=== PATIENT | male | born 1950 | race Two or more races ===

== ENCOUNTER 2017-06-10 00:45 | Emergency (ER) | payer MEDICARE, OTHER ==
[~2017-06-10] VITALS: Ht 177.8 cm; Wt 66.7 kg
[2017-06-10] MEDS ORDERED: LIDOCAINE 2% JEL UROJET 10 ML MM ONE ×2 (01:13→01:30)
[2017-06-10] MEDS ORDERED: CEFTRIAXONE 1GM BAG (ER ONLY) 50 ML IV ONE ×2 (01:30→01:55)
[2017-06-10] MEDS ORDERED: IV NS 0.9% 1,000 ML BAG IV ONE (01:30)
--- NOTE | 2017-06-10 01:41 | NUR ---
PT PRESENTED TO THE ER WITH A C/O POSS UTI. PT HAS CASTILLO CATH MOLDER MEAT WITH ORANGE OUTPUT. PT JUST FINISHED TX FOR UTI. PT STATED THAT HE HAS BPH AND IS TRYING TO GET A UROLOGIST. PT IS AA&O X4. PT IS ON THE MONITOR AND CONTINOUS PULSE OX.
[2017-06-10 01:56] LABS: BASOPHILS % (AUTO) 0.2 % (0.0-2.0); EOSINOPHILS # (AUTO) 0.1 /CMM (0.0-0.7); EOSINOPHILS % (AUTO) 1.3 % (0.0-6.0); HEMATOCRIT 36 % (39-51); HEMOGLOBIN 11.9 g/dL (13.5-17.5); LYMPHOCYTES # (AUTO) 1.3 /CMM (0.8-4.8); LYMPHOCYTES % (AUTO) 20.2 % (20.0-44.0); MEAN CORPUSCULAR HEMOGLOBIN 29 PG (26.0-33.0); MEAN CORPUSCULAR HGB CONC 33 g/dl (31.0-36.0); MEAN CORPUSCULAR VOLUME 87 fL (80-96); MONOCYTES # (AUTO) 0.5 /CMM (0.1-1.30); MONOCYTES % (AUTO) 7.3 % (2.0-12.0); NEUTROPHILS # (AUTO) 4.6 /CMM (1.8-8.9); PLATELET COUNT (AUTO) 268 /CMM (150-450); RDW COEFFICIENT OF VARIATION 15.2 (11.5-15.0); RED BLOOD CELL COUNT(AUTO) 4.15 MIL/uL (4.5-6.0); WHITE BLOOD COUNT (AUTO) 6.5 K/uL (4.3-11.0)
[2017-06-10 02:07] LABS: CALCIUM, SERUM 8.7 mg/dL (8.5-10.1); POTASSIUM 4.1 mmol/L (3.5-5.1)
[2017-06-10 02:13] LABS: ALBUMIN 3.2 g/dL (3.4-5.0); BILIRUBIN,DIRECT 0.1 mg/dL (0.0-0.2); BILIRUBIN,TOTAL 0.3 mg/dL (0.2-1.0); TOTAL PROTEIN, SERUM 6.7 g/dL (6.4-8.2)
[2017-06-10] MEDS ORDERED: CT SWABBABLE VALVE TRANS SET 1 EA INFUS.SET MC ONE (02:18)
[2017-06-10] MEDS ORDERED: IOHEXOL-300 100 ML VIAL IV ONE (02:18)
[2017-06-10] MEDS ORDERED: IV NS 0.9% 250 ML IV ONE (02:18)
--- NOTE | 2017-06-10 02:23 | NUR ---
PT LEFT FOR CT VIA GURNEY.
--- NOTE | 2017-06-10 02:55 | NUR ---
URINE SAMPLE OBTAINED AND SENT TO LAB.
[2017-06-10 03:28] LABS: APPEARANCE,URINE SL CLOUDY (CLEAR); BILIRUBIN,URINE 2+ (NEGATIVE); BLOOD, URINE 3+ Ery/uL (NEGATIVE); COLOR,URINE ORANGE (YELLOW); KETONES,URINE TRACE (NEGATIVE); LEUKOCYTE ESTERASE ,URINE 3+ (NEGATIVE); NITRITE, URINE POSITIVE (NEGATIVE); PROTEIN,URINE 3+ mg/dl (NEGATIVE); UGLUCOSE 1+ mg/dL (NEGATIVE); UROBILINOGEN,URINE >=8.0 EU/dL (0.2)
[2017-06-10 03:55] LABS: RBC,URINE 21-50 /HPF (0-2); WBC,URINE 21-50 /HPF (0-3)
[2017-06-10 03:56] LABS: BACTERIA,URINE Few /HPF (None Seen); SQUAMOUS EPITHELIAL CELL,UR Few /HPF (None Seen)
--- NOTE | 2017-06-10 04:30 | NUR ---
IV removed. Catheter intact and site benign. Pressure and 4x4 applied to site. No bleeding noted.Patient discharged to home in stable condition. Written and verbal after care instructions given. Patient verbalizes understanding of instruction AND RX. PT AMBULATED OUT TO THE LOBBY TO WAIT FOR P/U. VSS.
--- NOTE | 2017-06-10 04:32 | NUR ---
PT WAS D/C'D WITH CASTILLO. PT WANTED TO KEEP THE LARGE BAG AND REQUESTED A LEG BAG TO TAKE HOME. PT REC'D ALL REQUESTED.
[2017-06-10 04:33] VITALS: BP 129/82
== END 2017-06-10 04:34 | disposition home or self-care (01) ==
LOC: ER 00:47
DX: N39.0 Urinary tract infection, site not specified (principal); N40.0 Benign prostatic hyperplasia without lower urinary tract symptoms; B19.20 Unspecified viral hepatitis C without hepatic coma; Z88.2 Allergy status to sulfonamides; Z88.1 Allergy status to other antibiotic agents
CPT/HCPCS: 36415; 51702; 74160; 80048; 80076; 81001; 83690; 85025; 87077; 87086 ×2; 87186; 96365; 99285; A4606; J0696; J3490; J7030; J7050; Q9967; 81000-TC; Z7610

== ENCOUNTER 2017-06-16 17:59 | Emergency (ER) | payer MEDICARE, OTHER ==
[~2017-06-16] VITALS: Ht 177.8 cm; Wt 68.0 kg
[2017-06-16] MEDS ORDERED: LIDOCAINE 2% JEL UROJET 10 ML MM ONE ×3 (18:21→20:14)
--- NOTE | 2017-06-16 18:30 | NUR ---
A/OX4, PT CAME TO ER TO GET A CASTILLO CATH REPLACEMENT. PT STS HIS CASTILLO FELL OUT 1.5 HR AGO. NAD VSS RR EVEN AND UNLABORED. SKIN IS WARM AND NON DIAPHROETIC. SEEN AND EVALUATED BY Reyna HUTCHINSON
--- NOTE | 2017-06-16 18:40 | NUR ---
FOELY CATH insertion unsuccesfull. Dr. Dodge notified with order to administer Valium 5mg IM. [facility] out of stock of valium, pharmacy called and notified.
--- NOTE | 2017-06-16 19:15 | NUR ---
report given to robbi gray for cont of care.
[2017-06-16] MEDS: DIAZEPAM 5 MG/ML 2 ML DISP.SYRIN IM ONE (19:26)
[2017-06-16] MEDS ORDERED: LORAZEPAM INJ 2 MG/ML VIAL ONE (19:30)
[2017-06-16] MEDS: LORAZEPAM INJ 2 MG/ML VIAL IM ONE (19:36)
--- NOTE | 2017-06-16 20:40 | NUR ---
coude montalvo f18 inserted successfully, nad noted. patient olive procedure well. drained about 800cc of urine.
--- NOTE | 2017-06-16 20:56 | NUR ---
Patient discharged to home in stable condition. Written and verbal after care instructions given. Patient verbalizes understanding of instruction. Patient is ambulatory with a steady gait. Nad on dc. vss.
[2017-06-16 20:58] VITALS: BP 120/87
== END 2017-06-16 20:58 | disposition home or self-care (01) ==
LOC: ER 18:02
DX: T83.098A Other mechanical complication of other urinary catheter, initial encounter (principal); N39.0 Urinary tract infection, site not specified; I10 Essential (primary) hypertension; N40.0 Benign prostatic hyperplasia without lower urinary tract symptoms; B19.20 Unspecified viral hepatitis C without hepatic coma; Z88.1 Allergy status to other antibiotic agents; Z88.2 Allergy status to sulfonamides
CPT/HCPCS: 51702; 96372; 99284; A4606; A6403; J2060; J3490 ×3; Z7610

== ENCOUNTER 2017-07-02 20:15 | Emergency (ER) | payer MEDICARE, OTHER ==
[~2017-07-02] VITALS: Ht 188 cm; Wt 77.1 kg
[2017-07-02 23:00] VITALS: BP 122/74
[2017-07-02 23:08] LABS: APPEARANCE,URINE CLOUDY (CLEAR); BILIRUBIN,URINE NEGATIVE (NEGATIVE); BLOOD, URINE 3+ Ery/uL (NEGATIVE); COLOR,URINE YELLOW (YELLOW); KETONES,URINE TRACE (NEGATIVE); LEUKOCYTE ESTERASE ,URINE 3+ (NEGATIVE); NITRITE, URINE POSITIVE (NEGATIVE); PROTEIN,URINE 1+ mg/dl (NEGATIVE); UGLUCOSE NEGATIVE (NEGATIVE); UROBILINOGEN,URINE 0.2 EU/dL (0.2)
[2017-07-02 23:14] LABS: BACTERIA,URINE Moderate /HPF (None Seen); RBC,URINE 21-50 /HPF (0-2); SQUAMOUS EPITHELIAL CELL,UR None Seen /HPF (None Seen); WBC,URINE TOO NUMEROUS TO COUN /HPF (0-3)
--- NOTE | 2017-07-03 | NUR ---
D/C BY LEN/TONA
== END 2017-07-03 | disposition home or self-care (01) ==
LOC: ER 20:20
DX: Z46.6 Encounter for fitting and adjustment of urinary device (principal); N39.0 Urinary tract infection, site not specified; I10 Essential (primary) hypertension; N40.0 Benign prostatic hyperplasia without lower urinary tract symptoms; B19.20 Unspecified viral hepatitis C without hepatic coma; Z88.8 Allergy status to other drugs, medicaments and biological substances; Z88.2 Allergy status to sulfonamides
CPT/HCPCS: 51702; 81001; 87077; 87086; 87186; 99284; A4606; A6402; 81000-TC; Z7610

== ENCOUNTER 2017-07-22 01:35 | Emergency (ER) | payer MEDICARE, OTHER ==
[~2017-07-22] VITALS: Ht 177.8 cm; Wt 65.8 kg
--- NOTE | 2017-07-22 02:00 | NUR ---
66 YO MALE BB FRIEND. PATIENT IS A/O X 3, PT STATES THE CASTILLO CATH BALLON IS DEFLATED. APON ASSESSMENT, CASTILLO CATH BALLON IS DEFLATED AND WHEN PULLING BACK WITH A SYRINGE URINE COME OUT. PATIENT SKIN WARM AND DRY, RESP EVEN AND UNLABORED. WILL CONTINUE TO MONITOR, AWAITING ORDERS FROM PROVIDER
[2017-07-22] MEDS ORDERED: LIDOCAINE 2% JEL UROJET 10 ML MM ONE ×2 (02:23→04:30)
--- NOTE | 2017-07-22 02:25 | NUR ---
MEDICATED PT ORDERED; LIDOCAINE UROJET TOPICAL. TRIED TO PLACE 16F COUDE. UNABLE TO PLACE CASTILLO CATH. WITH ASSISTANCE OF ED ASSISTANT GOLF COACH, WAS ABLE TO PLACE 20F CASTILLO CATH. IRRIGATED BLADDER WITH 400 ML OF NS. WILL CONTINUE TO MONITOR
--- NOTE | 2017-07-22 02:45 | NUR ---
INFORMED MD GARRETT ABOUT PT. ORDERED US OF BLADDER
--- NOTE | 2017-07-22 03:00 | NUR ---
ENDORSED PT TO CHARGE NURSE DARRNO. PATIENT IS RESTING IN ER BED, NO DISTRESS NOTED
--- NOTE | 2017-07-22 03:02 | NUR ---
pt in bed on monitor, waiting for ultrasound to confirm placement of catheter, pt denies pain at this time will continue to monitor.
--- NOTE | 2017-07-22 04:00 | NUR ---
ULTRASOUND AT BEDSIDE
--- NOTE | 2017-07-22 04:30 | NUR ---
VITA CHENEY TRIED TO GET CATHETER IN BUT NOT SUCCESSFUL MD MADE AWARE AND PT UROLOGIST WAS CONTACTED, WILL CONTINUE TO MONITOR
--- NOTE | 2017-07-22 04:41 | NUR ---
ER SPOKE TO REGARDING PT.
--- NOTE | 2017-07-22 05:07 | NUR ---
MD VILLAFANA AT BEDSIDE
[2017-07-22 05:37] LABS: APPEARANCE,URINE CLOUDY (CLEAR); BILIRUBIN,URINE NEGATIVE (NEGATIVE); BLOOD, URINE 3+ Ery/uL (NEGATIVE); COLOR,URINE BROWN (YELLOW); KETONES,URINE NEGATIVE (NEGATIVE); LEUKOCYTE ESTERASE ,URINE 2+ (NEGATIVE); NITRITE, URINE NEGATIVE (NEGATIVE); PH,URINE 7.5 (5.0-8.0); PROTEIN,URINE 1+ mg/dl (NEGATIVE); UGLUCOSE NEGATIVE (NEGATIVE); UROBILINOGEN,URINE 0.2 EU/dL (0.2)
[2017-07-22 05:46] LABS: BACTERIA,URINE Few /HPF (None Seen); RBC,URINE TOO NUMEROUS TO COUN /HPF (0-2); SQUAMOUS EPITHELIAL CELL,UR None Seen /HPF (None Seen)
[2017-07-22 05:47] LABS: WBC,URINE 21-50 /HPF (0-3)
[2017-07-22 05:55] VITALS: BP 121/78
== END 2017-07-22 05:55 | disposition home or self-care (01) ==
LOC: ER 01:36
DX: T83.091A Other mechanical complication of indwelling urethral catheter, initial encounter (principal); N40.1 Benign prostatic hyperplasia with lower urinary tract symptoms; N39.0 Urinary tract infection, site not specified; B19.20 Unspecified viral hepatitis C without hepatic coma; I10 Essential (primary) hypertension; Z88.2 Allergy status to sulfonamides; Z88.8 Allergy status to other drugs, medicaments and biological substances; Y92.89 Other specified places as the place of occurrence of the external cause
CPT/HCPCS: 76856-TC; 81000-TC; 87086-TC; A4606; J3490; Z7610

== ENCOUNTER 2017-12-24 14:09 | Inpatient (IN) | payer OTHER, MEDICARE ==
[~2017-12-24] VITALS: Ht 177.8 cm; Wt 61.2 kg
--- NOTE | 2017-12-24 14:20 | NUR ---
PRESENTS TO ER C/O GENERALIZED WEAKNESS PER PT DEVELOPED OVER 6 WEEKS. A/OX 4, BREATHING EVEN AND UNLABORED. NO SOB, NAD, VITALS STABLE, SAFETY AND COMFORT MEASURES IN PLACE. AWAITING MD ORDERS.
--- NOTE | 2017-12-24 14:55 | NUR ---
NEW IV STARTED ON LAC, 18G. BLOOD DRAWN AND SENT TO LAB.
[2017-12-24] MEDS ORDERED: IV NS 0.9% 1,000 ML BAG IV ONE (15:00)
[2017-12-24 15:13] LABS: CALCIUM, SERUM 9.5 mg/dL (8.5-10.1); CARBON DIOXIDE 27 mmol/L (21-32); CHLORIDE 105 mmol/L (98-107); CREATININE 1.1 mg/dL (0.6-1.3); GLUCOSE 74 mg/dL (74-106); POTASSIUM 3.7 mmol/L (3.5-5.1); SODIUM SERUM 139 mmol/L (136-145); UREA NITROGEN, BLOOD 25 mg/dL (7-18)
[2017-12-24 15:16] LABS: BASOPHILS % (AUTO) 0.4 % (0.0-2.0); EOSINOPHILS % (AUTO) 0.1 % (0.0-6.0); HEMATOCRIT 39 % (39-51); HEMOGLOBIN 12.9 g/dL (13.5-17.5); LYMPHOCYTES # (AUTO) 0.5 /CMM (0.8-4.8); LYMPHOCYTES % (AUTO) 7.2 % (20.0-44.0); MEAN CORPUSCULAR HEMOGLOBIN 27 PG (26.0-33.0); MEAN CORPUSCULAR HGB CONC 34 g/dl (31.0-36.0); MEAN CORPUSCULAR VOLUME 80 fL (80-96); MONOCYTES # (AUTO) 0.6 /CMM (0.1-1.30); MONOCYTES % (AUTO) 8.8 % (2.0-12.0); NEUTROPHILS # (AUTO) 5.8 /CMM (1.8-8.9); NEUTROPHILS % (AUTO) 83.5 % (43.0-81.0); PLATELET COUNT (AUTO) 311 /CMM (150-450); RDW COEFFICIENT OF VARIATION 15.4 (11.5-15.0); WHITE BLOOD COUNT (AUTO) 6.9 K/uL (4.3-11.0)
[2017-12-24 15:17] LABS: INR 0.97 (0.85-1.15)
[2017-12-24 15:18] LABS: ALANINE AMINOTRANSFERASE 57 U/L (12-78); ALBUMIN 3.4 g/dL (3.4-5.0); ALCOHOL, BLOOD < 3 mg/dL (0-0); ALKALINE PHOSPHATASE 79 U/L (46-116); ASPARTATE AMINOTRANSFERASE 70 U/L (15-37); BILIRUBIN,DIRECT 0.2 mg/dL (0.0-0.2); BILIRUBIN,TOTAL 0.8 mg/dL (0.2-1.0); TOTAL PROTEIN, SERUM 7.6 g/dL (6.4-8.2)
--- NOTE | 2017-12-24 15:51 | NUR ---
MS 306-1 FOR FAILURE TO THRIVE AND DEHYDTRATION, DR.SAM Dawn ADMITTING
--- NOTE | 2017-12-24 16:10 | NUR ---
URINE OBTAINED AND SENT TO LAB.
[2017-12-24 16:13] LABS: APPEARANCE,URINE Cloudy (CLEAR); BILIRUBIN,URINE SMALL (NEGATIVE); BLOOD, URINE Trace-intact Ery/uL (NEGATIVE); COLOR,URINE Dark Yellow (YELLOW); KETONES,URINE Trace (NEGATIVE); LEUKOCYTE ESTERASE ,URINE Small (NEGATIVE); NITRITE, URINE Negative (NEGATIVE); PROTEIN,URINE 30 mg/dl (NEGATIVE); UGLUCOSE Negative (NEGATIVE)
[2017-12-24 16:20] LABS: RBC,URINE 20-50 /HPF (0-2)
[2017-12-24 16:21] LABS: BACTERIA,URINE Rare /HPF (None Seen); SQUAMOUS EPITHELIAL CELL,UR Few /HPF (None Seen); WBC,URINE 20-50 /HPF (0-3)
[2017-12-24 16:23] LABS: SERUM AMMONIA 26 umol/L (11-32)
[2017-12-24 16:26] LABS: TROPONIN I < 0.017 ng/mL (0.00-0.056)
[2017-12-24] MEDS ORDERED: Z GUARD REMEDY 2 OZ OINT TP PRN (16:30)
[2017-12-24] MEDS ORDERED: MAGNESIUM HYDROXIDE 30 ML UDC PO PRN (16:30)
[2017-12-24] MEDS ORDERED: HYDROCODONE/APAP 5/325MG 1 EACH TABLET PO PRN (16:30)
[2017-12-24] MEDS ORDERED: ACETAMINOPHEN 325 MG TABLET PO PRN (16:30)
[2017-12-24] MEDS ORDERED: MAG HYDROX/AL HYDROX/SIMETH 30 ML UDC PO PRN (16:30)
[2017-12-24] MEDS ORDERED: ONDANSETRON HCL/PF 4 MG/2 ML VIAL IVP PRN (16:30)
[2017-12-24] MEDS ORDERED: ZOLPIDEM TARTRATE 5 MG TABLET PO PRN (16:30)
--- NOTE | 2017-12-24 16:45 | NUR ---
REPORT GIVEN TO GHANSHYAM PAYTON FOR SABRINA UPON ADMISSION.
[2017-12-24 16:48] LABS: THYROID STIMULATING HORMONE 0.152 uIU/mL (0.358-3.74)
--- NOTE | 2017-12-24 17:00 | NUR ---
RN INITIAL NOTES PATIENT RECEIVED FROM ER VIA WC, AWAKE ALERT AND VERBALLY RESPONSIVE ABLE TO MAKE NEEDS KNOWN, EASILY AROUSABLE DURING CARE, RESPIRATIONS EVEN AND UNLABORED, DENIES ANY PAIN OR DISCOMFORT AT THIS TIME. IV ACCESS PATENT AND INTACT NO REDNESS OR INFILTRATION NOTED. DR. ROB WITH ADMITTING ORDERS WILL CARRY OUT, PICTURES OF SKIN TAKEN,SAFETY MEASURES IN PLACE,ORIENTED TO ROOM AND USE OF CALL LIGHT, CALL LIGHT WITHIN EASY REACH WILL CONTINUE TO MONITOR
--- NOTE | 2017-12-24 17:00 | NUR ---
PATIENT TRANSPORTED TO [facility]- VIA ACLS PROTOCOL. RNGHANSHYAM TO PROVIDE SABRINA.
[2017-12-24 17:05] VITALS: BP 124/81
[2017-12-24 17:44] VITALS: BP 124/81
[2017-12-24 18:04] LABS: IRON, SERUM 82 ug/dl (50-175); TOTAL IRON BINDING CAPACITY 368 ug/dl (250-450)
[2017-12-24] MEDS: IV D5/0.45 NACL 1,000 ML IV PRN (18:31)
[2017-12-24] MEDS: CEFTRIAXONE 1 G in IV D5W 50 ML IV SCH (18:31)
[2017-12-24] MEDS: ENOXAPARIN SODIUM 40 MG/0.4 ML DISP.SYRIN SQ SCH (18:42)
--- NOTE | 2017-12-24 19:17 | NUR ---
RN CLOSING NOTES PATIENT AWAKE ALERT AND VERBALLY RESPONSIVE ABLE TO MAKE NEEDS KNOWN, EASILY AROUSABLE DURING CARE, RESPIRATIONS EVEN AND UNLABORED, DENIES ANY PAIN OR DISCOMFORT AT THIS TIME. IV ACCESS PATENT AND INTACT NO REDNESS OR INFILTRATION NOTED,SAFETY MEASURES IN PLACE,ORIENTED TO ROOM AND USE OF CALL LIGHT, CALL LIGHT WITHIN EASY REACH WILL CONTINUE TO MONITOR AND ENDORSE TO NEXT SHIFT FOR CONTINUITY OF CARE
[2017-12-24 20:00] VITALS: BP 124/72
[2017-12-25] VITALS: BP 132/74
[2017-12-25 04:00] VITALS: BP 150/84
--- NOTE | 2017-12-25 06:20 | NUR ---
FRONT END SPECIALIST NOTES AWAKE & RESPONSIVE. NOT IN ANY DISTRESS. NO SOB NOTED. DENIES ANY PAIN OR DISCOMFORT AT THIS TIME. ON TELE SR @ 72 WITH OCC PVCS WITH IV-HL PATENT & INTACT. CALL LIGHT WITHIN REACH. BED IN LOWEST POSITION. SR UP X 2 FOR SAFETY WITH BED ALARM ON. WILL ENDORSE TO NEXT SHIFT.
[2017-12-25 06:22] LABS: BASOPHILS % (AUTO) 0.3 % (0.0-2.0); EOSINOPHILS % (AUTO) 0.3 % (0.0-6.0); HEMATOCRIT 41 % (39-51); HEMOGLOBIN 13.4 g/dL (13.5-17.5); LYMPHOCYTES # (AUTO) 0.9 /CMM (0.8-4.8); LYMPHOCYTES % (AUTO) 15.3 % (20.0-44.0); MEAN CORPUSCULAR HEMOGLOBIN 27 PG (26.0-33.0); MEAN CORPUSCULAR HGB CONC 32 g/dl (31.0-36.0); MEAN CORPUSCULAR VOLUME 83 fL (80-96); MONOCYTES # (AUTO) 0.5 /CMM (0.1-1.30); NEUTROPHILS # (AUTO) 4.4 /CMM (1.8-8.9); NEUTROPHILS % (AUTO) 76.1 % (43.0-81.0); PLATELET COUNT (AUTO) 304 /CMM (150-450); RDW COEFFICIENT OF VARIATION 16.7 (11.5-15.0); RED BLOOD CELL COUNT(AUTO) 5.02 MIL/uL (4.5-6.0); WHITE BLOOD COUNT (AUTO) 5.7 K/uL (4.3-11.0)
[2017-12-25 06:46] LABS: THYROID STIMULATING HORMONE 0.105 uIU/mL (0.358-3.74)
[2017-12-25 06:51] LABS: CALCIUM, SERUM 8.8 mg/dL (8.5-10.1); MAGNESIUM 2.2 mg/dL (1.8-2.4); PHOSPHORUS 3.1 mg/dL (2.5-4.9); POTASSIUM 3.5 mmol/L (3.5-5.1)
--- NOTE | 2017-12-25 07:10 | NUR ---
MANAGER SPANISH NOTES PATIENT RESTING INSIDE ROOM, AWAKE, ALERT AND ORIENTED, VERBALLY RESPONSIVE AND RESPONDS TO VERBAL AND TACTILE STIMULI. BREATHING EVEN AND UNLABORED. NO SOB OR ACUTE DISTRESS NOTED. PATIENT DENIES ANY PAIN OR DISCOMFORT AT THIS TIME. IV SITE INTACT AND PATENT, NO SWELLING OR BLEEDING NOTED. WILL CONTINUE TO MONITOR. BED LOCKED AND IN LOW POSITION. BILATERAL UPPER SIDE RAILS UP AND LOCKED. CALL LIGHT WITHIN EASY REACH
[2017-12-25 08:00] VITALS: BP 141/90
[2017-12-25] MEDS: IV D5/0.45 NACL 1,000 ML IV PRN (14:18)
--- NOTE | 2017-12-25 15:08 | NUR ---
Social service consult requested by pt's RN due to pt. not having a kitchen in his mobile home. Pt. is a 67 year old male who was admitted to [facility] for Grave disability and and frequent falls. SW met with pt. bedside. Pt. is alert and oriented x 4. Pt. appeared weak and frail. According to the H&P by Dr. Redd, pt. has lost 25 lbs in the last few weeks. Pt. states he lives in a mobile home located near the [facility] facility at [id number] [place] [address] in [place]. Pt. states he has a friend living with him at this time. Pt. states he does not have a stove at home but does have a refrigerator. For meals, pt. eats mostly fast food. SW informed pt. she will give him food resources to food robles and also to [employer] in [place] that can offer pt. resources such as food, clothing, showers etc prior to discharge. Pt. currently receives approximately $982 in [email or web address] money per month. Pt. denies using alcohol, marijuana and cigarettes. Pt. last used heroin and methamphetamines 3 to 4 days ago. Pt. stated he had stopped using drugs for a while and used 3 to 4 days ago to make himself feel better since he was in pain. However, pt. states, it made him feel worse. Pt. denies suicidal and homicidal ideations and visual/auditory hallucinations at this time. No other social service needs are required at this time. SW is available, if needed. SW to follow up with pt. with aforementioned resources prior to discharge.
[2017-12-25 16:00] VITALS: BP 135/88
[2017-12-25] MEDS: CEFTRIAXONE 1 G in IV D5W 50 ML IV SCH (17:17)
[2017-12-25] MEDS: ENSURE ENLIVE 237 ML LIQUID (VANILLA) PO SCH (17:27)
--- NOTE | 2017-12-25 19:00 | NUR ---
rn initial notes: pt not in the room, currently in the ct room for ct scan of chest neck per dr jose vincent to r/o any malignancy
--- NOTE | 2017-12-25 19:15 | NUR ---
rn notes: pt's back from ct. pt on ra, respiration even and unlabored, a/o x3, denies any pain or discomfort at this time. iv access patent and flushing well, connected to ivf d5 1/2 ns at 75ml/hr. urinal placed within reach, informed pt about stool collection in case he needs to have bowel movement. discussed plan of care to the pt, pt agree and understand. safety precautions for fall initiated, call light in reach, will continue monitoring pt.
--- NOTE | 2017-12-25 19:30 | NUR ---
RN NOTES: PT C/O 12/07 PAIN OFFERED PAIN MEDICATION BUT PT REFUSED, STATED ONLY COLD COMPRESS. COLD COMPRESS APPLIED [id number], LEFT HAND/ARM X RAY NEGATIVE FOR FRACTURE.
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
[2017-12-25 20:00] VITALS: BP 128/80
--- NOTE | 2017-12-25 20:00 | NUR ---
RN NOTES: PT REFUSED TO WEAR HOSPITAL GOWN, INSISTED ON USING OWN CLOTHING, EDUCATE PT REGARDING USE OF HOSPITAL GOWN, BUT PT REFUSED STATED HE'S MORE COMFORTABLE WITH HIS OWN CLOTHING
[2017-12-25] MEDS: ENOXAPARIN SODIUM 40 MG/0.4 ML DISP.SYRIN SQ SCH (21:18)
--- NOTE | 2017-12-26 01:02 | NUR ---
RN NOTES: PT REQUESTED TO BE DISCONNECTED TO IVF STATED HE'S DRINKING ENOUGH WATER AND WILL TRY TO EAT, EDUCATE PT REGARDING IMPORTANCE OF IV FLUID AND HYDRATION, BUT PT STILL REFUSED IVF
--- NOTE | 2017-12-26 01:51 | NUR ---
RN NOTES: COLLECTED STOOL SPECIMEN FOR OB, CALLED LAB FOR PROPOSAL MANAGER WRITER, SPOKED TO SIRI
--- NOTE | 2017-12-26 03:45 | NUR ---
FITO NOTES: PT AWAKE AT THIS TIME, REQUESTING FOR SNACK, GIVEN SANDWICH AND JUICE, CONSUMED 1005 NO ASPIRATION NOTED Addendum: 12/26/17 at 0347 by MOHINDER HARPER RN CORRECTION OF ENTRY: 100% NOT 1005 RN NOTES: PT AWAKE AT THIS TIME, REQUESTING FOR SNACK, GIVEN SANDWICH AND JUICE, CONSUMED 100% NO ASPIRATION NOTED
[2017-12-26 04:57] LABS: OCCULT BLOOD STOOL NEGATIVE (NEGATIVE)
[2017-12-26 06:18] LABS: BASOPHILS % (AUTO) 0.2 % (0.0-2.0); EOSINOPHILS % (AUTO) 0.1 % (0.0-6.0); HEMATOCRIT 41 % (39-51); HEMOGLOBIN 13.4 g/dL (13.5-17.5); LYMPHOCYTES # (AUTO) 0.8 /CMM (0.8-4.8); LYMPHOCYTES % (AUTO) 12.1 % (20.0-44.0); MEAN CORPUSCULAR HEMOGLOBIN 27 PG (26.0-33.0); MEAN CORPUSCULAR HGB CONC 33 g/dl (31.0-36.0); MEAN CORPUSCULAR VOLUME 83 fL (80-96); MONOCYTES # (AUTO) 0.4 /CMM (0.1-1.30); MONOCYTES % (AUTO) 6.5 % (2.0-12.0); NEUTROPHILS # (AUTO) 5.1 /CMM (1.8-8.9); NEUTROPHILS % (AUTO) 81.1 % (43.0-81.0); PLATELET COUNT (AUTO) 321 /CMM (150-450); RDW COEFFICIENT OF VARIATION 16.7 (11.5-15.0); RED BLOOD CELL COUNT(AUTO) 4.94 MIL/uL (4.5-6.0); WHITE BLOOD COUNT (AUTO) 6.3 K/uL (4.3-11.0)
--- NOTE | 2017-12-26 06:32 | NUR ---
RN NOTES: BROUGHT PT MENU DOWN TO DIETARY/KITCHEN
--- NOTE | 2017-12-26 06:59 | NUR ---
RN CLOSING NOTES: PT IN BED, AWAKE, REMAINS A/O X3 ON RA RESPIRATION EVEN AND UNLABORED, STILL REFUSED TO WEAR HOSPITAL GOWN. LEFT AC IV ACCESS REMAINS PATENT AND FLUSHING WELL, ON HL, PT REMAINS TO REFUSED IVF. MEPILEX ON SACRAL AREA REMAINS IN PLACED. VS REMAINS STABLE, NEEDS ATTENDED. CM SW ON BOARD. STOOL FOR OB SENT, RESULT CAME BACK NEGATIVE. SAFETY PRECAUTIONS FOR FALL REMAINS ENGAGED, CALL LIGHT IN REACH, WILL ENDORSE TO DAY RN FOR CONTINUITY OF CARE.
--- NOTE | 2017-12-26 07:19 | NUR ---
MS RN OPENING NOTES RECEIVED PATIENT IN BED AWAKE, A/O X3. RESPONSIVE TO VERBAL AND TACTILE STIMULI, NO C/O PAIN OR DISCOMFORTS VOICED AT THIS TIME. ON ROOM AIR, BREATHING EVEN AND UNLABORED. IV ACCESS ON LEFT AC INTACT AND PATENT, NO SWELLING OR BLEEDING NOTED. PT STILL REFUSING IVF. SAFETY MEASURES IN PLACE. BED LOCKED AND IN LOW POSITION. BILATERAL UPPER SIDE RAILS UP AND LOCKED. CALL LIGHT WITHIN EASY REACH. WILL CONTINUE TO MONITOR.
[2017-12-26 08:00] VITALS: BP 120/77
[2017-12-26] MEDS: MULTIVITAMINS,THERAGRAN 1 UDTAB TABLET PO SCH (08:24)
[2017-12-26] MEDS: ENSURE ENLIVE 237 ML LIQUID (VANILLA) PO SCH ×3 (09:24→16:50)
--- NOTE | 2017-12-26 09:33 | NUR ---
RN NOTES PATIENT SEEN BY DR ROB THIS MORNING. REPORTED THAT PT HAD HR RATE B/W 100-105. dR ROB IT'S OK AND ORDER TO DO CT SCAN OF CHEST WITH CONTRAST. RADIOLOGY CONTACTED AND INFORMED THAT PT ALREADY ATE BREAKFAST, TECH SAID TO PUT PT ON NPO NOW AND THEY WILL DO THE CT SCAN OF CHEST WITH CONTRAST TOGETHER WITH CT SCAN OF NECK AFTER LUNCH. PATIENT MADE AWARE, UNDERSTOOD AND SIGNED CONSENT. WILL CONTINUE TO MONITOR.
--- NOTE | 2017-12-26 10:16 | NUR ---
RN NOTES PATIENT AGREED TO HAVE HIS IVF OF D5 1/2NS @ 75ML HR CONNECTED TO LAC IV LINE AFTER EXPLAINING THE BENEFITS OF HAVING IT. WILL CONTINUE TO MONITOR
[2017-12-26] MEDS ORDERED: DIATR MEGLU/DIATRIZOATE SODIUM 30 ML BOTTLE (GASTROGRAPHIN) ONE (11:04)
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
--- NOTE | 2017-12-26 13:14 | NUR ---
RN NOTES ENSURE ENLIVE NOT GIVEN AT 1300, PT IS NPO AT THIS TIME, PT WAITING TO BE JUNIOR SALES REPRESENTATIVE FOR CT SCAN OF CHEST WITH CONTRAST. WILL CONTINUE TO MONITOR.
[2017-12-26] MEDS ORDERED: CT SWABBABLE VALVE TRANS SET 1 EA INFUS.SET MC ONE (14:23)
[2017-12-26] MEDS ORDERED: IV NS 0.9% 250 ML IV ONE (14:23)
[2017-12-26] MEDS ORDERED: IOHEXOL-300 100 ML VIAL IV ONE (14:23)
--- NOTE | 2017-12-26 14:30 | NUR ---
RN NOTES PATIENT WAS PICKED -UP VIA WHEELCHAIR JUST NOW BY RADIOLOGIST FOR CT SCAN OF CHEST WITH CONTRAST AND CT SCAN OF NECK W/O CONTRAST.
--- NOTE | 2017-12-26 14:44 | NUR ---
RN NOTES PATIENT CAME BACK FROM CT SCAN. DR MANRIQUE WENT TO HIS ROOM AND SAID THAT SHE WILL EXPLAIN THE RESULTS WHEN IT COMES OUT. WILL CONTINUE TO MONITOR.
[2017-12-26 16:00] VITALS: BP 141/79
[2017-12-26] MEDS: ACETYLCYSTEINE 10% 3,000 MG/30 ML VIAL PO SCH (16:07)
[2017-12-26] MEDS: CEFTRIAXONE 1 G in IV D5W 50 ML IV SCH (17:14)
--- NOTE | 2017-12-26 18:50 | NUR ---
MS RN CLOSING NOTES PATIENT AWAKE AND RESTING AT MODERATE HIGH BACKREST IN BED. A/O X3-4. ABLE TO TO MAKE NEEDS KNOWN. ON ROOM AIR, BREATHING EVEN WITH NO ACUTE RESPIRATORY DISTRESS NOTED. IV ACCESS ON LEFT AC INTACT AND PATENT, IVF OF D5 1/2 NS @ 75ML/HR INFUSING WELL, NO S/S OF INFILTRATION NOTED. ALL SAFETY MEASURES KEPT IN PLACE. BED LOCKED AND IN LOW POSITION. BILATERAL UPPER SIDE RAILS UP AND LOCKED. CALL LIGHT WITHIN EASY REACH. ALL NEEDS AND CARE ATTENDED WELL. WILL ENDORSE TO LICENSED MORTGAGE LOAN OFFICER NURSE FOR CONTINUITY OF CARE.
--- NOTE | 2017-12-26 19:23 | NUR ---
MS RN NOTES RECEIVED PATIENT IN BED, AWAKE, COMFORTABLE VERBALIZED. A/O X3, VERBALLY RESPONSIVE. 02 SATURATION IS 97 % ON ROOM AIR, BREATHING EVEN AND UNLABORED. IV SITE ON LEFT AC INTACT AND PATENT. IVF INFUSING WELL. SAFETY MEASURES OBSERVED. DENIES ANY PAIN OR DISCOMFORT AT THIS TIME. BED LOCKED AND IN LOW POSITION. CALL LIGHT WITHIN EASY REACH. WILL CONTINUE TO MONITOR.
[2017-12-26 20:00] VITALS: BP 126/80
[2017-12-26 20:08] VITALS: BP 126/80
[2017-12-26] MEDS: ENOXAPARIN SODIUM 40 MG/0.4 ML DISP.SYRIN SQ SCH (21:07)
--- NOTE | 2017-12-26 21:35 | NUR ---
DR. SUAREZ ( NEUROLOGIST ) AT BEDSIDE.
[2017-12-27] MEDS: ACETYLCYSTEINE 10% 3,000 MG/30 ML VIAL PO SCH ×2 (04:26→08:47)
--- NOTE | 2017-12-27 06:29 | NUR ---
MS RN NOTES PATIENT IN BED, AWAKE, COMFORTABLE VERBALIZED. A/O X3, VERBALLY RESPONSIVE. 02 SATURATION IS 97 % ON ROOM AIR, BREATHING EVEN AND UNLABORED. IV SITE ON LEFT AC INTACT AND PATENT. IVF INFUSING WELL. SAFETY MEASURES OBSERVED. DENIES ANY PAIN OR DISCOMFORT AT THIS TIME. BED LOCKED AND IN LOW POSITION. CALL LIGHT WITHIN EASY REACH. WILL ENDORSE TO NEXT SHIFT FOR SABRINA.
--- NOTE | 2017-12-27 06:30 | NUR ---
MS RN NOTES PATIENT SITTING UP IN BED, AWAKE, COMFORTABLE VERBALIZED. A/O X3, VERBALLY RESPONSIVE. 02 SATURATION IS 97 % ON ROOM AIR, BREATHING EVEN AND UNLABORED. IV SITE ON LEFT AC INTACT AND PATENT. IVF INFUSING WELL. CAREGIVER AT BED SIDE, SAFETY MEASURES OBSERVED. DENIES ANY PAIN OR DISCOMFORT AT THIS TIME. BED LOCKED AND IN LOW POSITION. CALL LIGHT WITHIN EASY REACH. WILL ENDORSE TO NEXT SHIFT FOR SABRINA. Addendum: 12/27/17 at 0816 by PHILLY DAVIS RN INCORRECT PT DOCUMENTATION
--- NOTE | 2017-12-27 06:44 | NUR ---
RECEIVED A CALL FROM LAB REGARDING PT'S BS : 50 , CHARGE NURSE VAISHNAVI CHUN. Addendum: 12/27/17 at 0812 by PHILLY DAVIS RN INCORRECT PT DOCUMENTATION
--- NOTE | 2017-12-27 06:46 | NUR ---
PLACED A CALL TO [facility] , DR. BLAKE CDL DRIVER WAS PAGED , AWAITING FOR A CALL BACK. PT ASYMPTOMATIC, NO CHANGE IN ALOC, REMAINS A/O X 3, VERBALLY RESPONSIVE, NO SWEATING NOR DIZZINESS NOTED. CAREGIVER AND RESPONSIBLE DEMOCRAT AT BEDSIDE.CHARGE NURSE VAISHNAVI CHUN. Addendum: 12/27/17 at 0813 by PHILLY DAVIS RN INCORRECT PT DOCUMENTATION
--- NOTE | 2017-12-27 07:30 | NUR ---
RECEIVED PT. THIS AM ALERT AND ORIENTED X3-4.PLEASANT AND COOPERATIVE.VS STABLE.IV INFUSING.UP IN RM.AMB. ON OCCASION.
--- NOTE | 2017-12-27 08:03 | NUR ---
PT'S BS : 96 AT THIS TIME, ENDORSED TO CAITLYN PAYTON ACCORDINGLY.
[2017-12-27 08:08] VITALS: BP 149/77
[2017-12-27] MEDS: ENSURE ENLIVE 237 ML LIQUID (VANILLA) PO SCH ×3 (08:47→17:44)
[2017-12-27] MEDS: MULTIVITAMINS,THERAGRAN 1 UDTAB TABLET PO SCH (08:47)
--- NOTE | 2017-12-27 08:47 | NUR ---
MED. FOR BACK PAIN WITH [place] TAB.
[2017-12-27] MEDS: IV D5/0.45 NACL 1,000 ML IV PRN (08:48)
--- NOTE | 2017-12-27 12:30 | NUR ---
FRIEND IN TO VISIT.
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
[2017-12-27 15:58] VITALS: BP 134/76
--- NOTE | 2017-12-27 18:00 | NUR ---
no change in status,dressing chg to rt. arm tolerated well.
--- NOTE | 2017-12-27 19:30 | NUR ---
MS RN OPENING NOTES PATIENT IN BED, A/O X4 , COMFORTABLE AND REFUSES PAIN AT THIS TIME.VERBALLY RESPONSIVE. 02 SATURATION IS 99 % ON ROOM AIR, BREATHING EVEN AND UNLABORED. IV SITE ON LEFT AC INTACT AND PATENT. ONGOING FLUID @75 ML/H. BED LOCKED AND IN LOW POSITION. CALL LIGHT WITHIN EASY REACH. WILL CONTINUE TO MONITOR.
[2017-12-27 20:00] VITALS: BP 125/70
[2017-12-27] MEDS: ENOXAPARIN SODIUM 40 MG/0.4 ML DISP.SYRIN SQ SCH (20:38)
[2017-12-28] MEDS: ACETYLCYSTEINE 10% 3,000 MG/30 ML VIAL PO SCH (02:57)
[2017-12-28] MEDS: IV D5/0.45 NACL 1,000 ML IV PRN ×2 (02:57→23:11)
--- NOTE | 2017-12-28 07:00 | NUR ---
RN MS CLOSING NOTES PATIENT IN BED, A/O X4 , SLEEPING . 02 SATURATION IS 98 % ON ROOM AIR, BREATHING EVEN AND UNLABORED. IV SITE ON LEFT AC INTACT AND PATENT. ONGOING FLUID @75 ML/H. BED LOCKED AND IN LOW POSITION. CALL LIGHT WITHIN EASY REACH. WILL ENDORSE TO DAY SHIFT NURSE.
--- NOTE | 2017-12-28 07:24 | NUR ---
MS RN OPENING NOTES RECEIVED PT LAYING IN BED WITH HOB SLIGHTLY ELEVATED, SLEEPING COMFORTABLY. PT IS EASILY AROUSABLE AND RESPONSIVE. RESPIRATIONS ARE EVEN AND UNLABORED, NOT IN ANY ACUTE DISTRESS NOTED. PT DENIES ANY PAIN AT THIS TIME, NO C/O SOB, N/V. IV SITE INTACT, NO INFILTRATION NOTED. DRESSING KEPT CLEAN AND DRY. SAFETY MEASURES ARE IN PLACE. INSTRUCTED PT TO USE CALL LIGHT WHEN ASSISTANCE IS NEEDED, CALL LIGHT IS LEFT WITHIN REACH. WILL CONTINUE TO MONITOR THROUGHOUT SHIFT FOR SABRINA.
[2017-12-28 08:00] VITALS: BP 137/94
[2017-12-28] MEDS: ENSURE ENLIVE 237 ML LIQUID (VANILLA) PO SCH ×3 (08:07→17:17)
[2017-12-28] MEDS: MULTIVITAMINS,THERAGRAN 1 UDTAB TABLET PO SCH (08:07)
[2017-12-28 16:00] VITALS: BP 142/68
--- NOTE | 2017-12-28 18:19 | NUR ---
MS RN CLOSING NOTES ALL DUE MEDS GIVEN, NEEDS MET AND RENDERED. PT REMAINS AWAKE AND RESPONSIVE. RESPIRATIONS ARE EVEN AND UNLABORED, NOT IN ANY ACUTE DISTRESS NOTED. PT DENIES ANY PAIN, N/V, SOB AT THIS TIME. IV SITE INTACT, NO INFILTRATION NOTED. DRESSING KEPT CLEAN AND DRY. IV FLUIDS INFUSING AND PT TOLERATING WELL. SAFETY MEASURES ARE IN PLACE. WILL ENDORSE TO NEXT SHIFT FOR CONTINUITY OF CARE.
--- NOTE | 2017-12-28 19:28 | NUR ---
MS RN OPENING NOTES PATIENT IN BED, A/O X4 , COMFORTABLE AND REFUSES ANY DISTRESS OR PAIN AT THIS TIME.VERBALLY RESPONSIVE. 02 SATURATION IS 98 % ON ROOM AIR, BREATHING EVEN AND UNLABORED. IV SITE ON LEFT AC INTACT AND PATENT. ONGOING FLUID @75 ML/H. BED LOCKED AND IN LOW POSITION. CALL LIGHT WITHIN EASY REACH. WILL CONTINUE TO MONITOR.
[2017-12-28 20:00] VITALS: BP 126/77
[2017-12-28] MEDS: ENOXAPARIN SODIUM 40 MG/0.4 ML DISP.SYRIN SQ SCH (20:44)
[2017-12-29 06:20] LABS: BASOPHILS % (AUTO) 0.2 % (0.0-2.0); EOSINOPHILS % (AUTO) 1.8 % (0.0-6.0); HEMATOCRIT 38 % (39-51); HEMOGLOBIN 12.6 g/dL (13.5-17.5); LYMPHOCYTES % (AUTO) 16.3 % (20.0-44.0); MEAN CORPUSCULAR HEMOGLOBIN 27 PG (26.0-33.0); MEAN CORPUSCULAR HGB CONC 33 g/dl (31.0-36.0); MEAN CORPUSCULAR VOLUME 81 fL (80-96); MONOCYTES # (AUTO) 0.5 /CMM (0.1-1.30); MONOCYTES % (AUTO) 8.2 % (2.0-12.0); NEUTROPHILS # (AUTO) 4.5 /CMM (1.8-8.9); NEUTROPHILS % (AUTO) 73.5 % (43.0-81.0); PLATELET COUNT (AUTO) 303 /CMM (150-450); RED BLOOD CELL COUNT(AUTO) 4.65 MIL/uL (4.5-6.0); WHITE BLOOD COUNT (AUTO) 6.1 K/uL (4.3-11.0)
[2017-12-29 06:30] LABS: CALCIUM, SERUM 8.7 mg/dL (8.5-10.1); CREATININE 0.9 mg/dL (0.6-1.3); POTASSIUM 4.4 mmol/L (3.5-5.1)
--- NOTE | 2017-12-29 06:49 | NUR ---
RN CLOSING NOTES PATIENT IN BED, A/O X4 , COMFORTABLE WITH NO DISTRESS OR PAIN AT THIS TIME.VERBALLY RESPONSIVE. 02 SATURATION IS 100 % ON ROOM AIR, BREATHING EVEN AND UNLABORED. IV SITE ON LEFT AC INTACT AND PATENT. ONGOING FLUID D5 1/2 NS@75 ML/H.PT AWAITING FOR DISCHARGE. BED LOCKED AND IN LOW POSITION. CALL LIGHT WITHIN EASY REACH. WILL ENDORSE TO DAY SHIFT FOR SABRINA .
[2017-12-29 08:00] VITALS: BP 135/89
--- NOTE | 2017-12-29 08:00 | NUR ---
RN NOTES RECEIVED PATIENT IN THE ROOM, A/O X4, NO ACUTE DISTRESS, V/S STABLE, NO C/O PAIN AT THIS TIME. PATIENT USING URINAL. NEEDS ATTENDED AND ANTICIPATED. SCHEDULED MEDICATION ADMINISTERED.INFUSING IV ON LEFT F/A INTACT. CALL LIGHT WITHIN TO REACH, CONTINUED MONITORING.
[2017-12-29] MEDS: ENSURE ENLIVE 237 ML LIQUID (VANILLA) PO SCH ×2 (08:44→15:02)
[2017-12-29] MEDS: MULTIVITAMINS,THERAGRAN 1 UDTAB TABLET PO SCH (08:44)
[2017-12-29] MEDS ORDERED: METOPROLOL TARTRATE 25 MG TABLET PO SCH (15:30)
[2017-12-29 15:36] VITALS: BP 121/81
--- NOTE | 2017-12-29 16:15 | NUR ---
DISCHARGE NOTES PATIENT LEFT AMA AT THIS TIME BECAUSE OF PERSONAL REASON. PER POULTRY SLAUGHTERER DR BELCHER, AND IDANIA PATIENT NOT SAFE FOR DISCHARGE TODAY. DISCUSSED PLAN OF CARE WITH PATIENT, BENEFITS AND RISK OF LIVING AMA. PATIENT VERBALIZED UNDERSTANDING BUT SIGN AMA FORM FOR LIVING.
== END 2017-12-29 16:10 | disposition home or self-care (01) | DRG 463 ==
LOC: ER 14:11 → MED 16:24 → TELE 18:18 → MED 12-25 08:57
DX: N39.0 Urinary tract infection, site not specified (principal); B19.10 Unspecified viral hepatitis B without hepatic coma; I10 Essential (primary) hypertension; R22.2 Localized swelling, mass and lump, trunk; M19.90 Unspecified osteoarthritis, unspecified site; R29.6 Repeated falls; B19.20 Unspecified viral hepatitis C without hepatic coma; D64.9 Anemia, unspecified; E03.9 Hypothyroidism, unspecified; R13.10 Dysphagia, unspecified; Z88.2 Allergy status to sulfonamides; R74.0 Nonspecific elevation of levels of transaminase and lactic acid dehydrogenase [LDH]; R53.1 Weakness; Z91.81 History of falling; M54.10 Radiculopathy, site unspecified; G62.9 Polyneuropathy, unspecified; F19.90 Other psychoactive substance use, unspecified, uncomplicated; R91.1 Solitary pulmonary nodule; W18.11XA Fall from or off toilet without subsequent striking against object, initial encounter; Y93.9 Activity, unspecified; Y92.009 Unspecified place in unspecified non-institutional (private) residence as the place of occurrence of the external cause; N40.1 Benign prostatic hyperplasia with lower urinary tract symptoms
CPT/HCPCS: 36415; 70450-TC; 70490-TC; 71045-TC; 71250-TC; 71260-TC; 73130-TC; 76536-TC; 76700-TC; 80048-TC; 80061-TC; 80076-TC; 80305; 81000-TC; 82140-TC; 82272-TC; 82728-TC; 82746; 83540-TC; 83735-TC; 84100-TC; 84439-TC; 84443-TC; 84480; 84481; 84484-TC; 85025-TC; 85730-TC; 86706; 86803; 87081-TC; 87340; 93307-TC; 97110-TC; 97116-TC; 97530-TC; A4606; A6402; G0480; J0696; J1650; J3490; J7030; J7050; J7060; Q9963; Q9967; Z7610

== ENCOUNTER 2018-03-26 21:07 | Inpatient (IN) | payer OTHER, MEDICARE ==
[~2018-03-26] VITALS: Ht 177.8 cm; Wt 62.6 kg
[2018-03-26 21:46] LABS: BASOPHILS # (AUTO) 0.1 /CMM (0.0-0.2); EOSINOPHILS % (AUTO) 0.9 % (0.0-6.0); HEMATOCRIT 39 % (39-51); HEMOGLOBIN 12.8 g/dL (13.5-17.5); LYMPHOCYTES # (AUTO) 0.6 /CMM (0.8-4.8); LYMPHOCYTES % (AUTO) 9.7 % (20.0-44.0); MEAN CORPUSCULAR HGB CONC 33 g/dl (31.0-36.0); MEAN CORPUSCULAR VOLUME 81 fL (80-96); MONOCYTES # (AUTO) 0.4 /CMM (0.1-1.30); MONOCYTES % (AUTO) 5.7 % (2.0-12.0); NEUTROPHILS # (AUTO) 5.4 /CMM (1.8-8.9); NEUTROPHILS % (AUTO) 82.7 % (43.0-81.0); PLATELET COUNT (AUTO) 323 /CMM (150-450); RDW COEFFICIENT OF VARIATION 14.9 (11.5-15.0); RED BLOOD CELL COUNT(AUTO) 4.76 MIL/uL (4.5-6.0); WHITE BLOOD COUNT (AUTO) 6.6 K/uL (4.3-11.0)
[2018-03-26 21:56] LABS: CALCIUM, SERUM 8.8 mg/dL (8.5-10.1); CARBON DIOXIDE 30 mmol/L (21-32); CHLORIDE 104 mmol/L (98-107); CREATININE 0.8 mg/dL (0.6-1.3); GLUCOSE 108 mg/dL (74-106); POTASSIUM 3.7 mmol/L (3.5-5.1); SODIUM SERUM 139 mmol/L (136-145); UREA NITROGEN, BLOOD 18 mg/dL (7-18)
[2018-03-26 22:00] LABS: INR 0.97 (0.85-1.15)
[2018-03-26] MEDS ORDERED: MORPHINE SULFATE INJ 2 MG/ML DISP.SYRIN IV ONE (22:00)
[2018-03-26] MEDS ORDERED: IV NS 0.9% 1,000 ML BAG IV ONE (22:00)
[2018-03-26] MEDS ORDERED: ONDANSETRON HCL/PF 4 MG/2 ML VIAL IVP ONE (22:00)
[2018-03-26 22:02] LABS: ALANINE AMINOTRANSFERASE 31 U/L (12-78); ALBUMIN 3.3 g/dL (3.4-5.0); ALKALINE PHOSPHATASE 80 U/L (46-116); ASPARTATE AMINOTRANSFERASE 31 U/L (15-37); BILIRUBIN,DIRECT 0.1 mg/dL (0.0-0.2); BILIRUBIN,TOTAL 0.7 mg/dL (0.2-1.0); LIPASE 78 U/L (73-393); TOTAL PROTEIN, SERUM 7.3 g/dL (6.4-8.2)
[2018-03-26 22:04] LABS: TROPONIN I < 0.017 ng/mL (0.00-0.056)
[2018-03-26] MEDS ORDERED: MORPHINE SULFATE INJ 4 MG/ML DISP.SYRIN ONE (22:06)
[2018-03-26] MEDS ORDERED: ONDANSETRON HCL/PF 4 MG/2 ML VIAL ONE (22:06)
--- NOTE | 2018-03-26 22:34 | NUR ---
BB FRIEND C/O LOOSE STOOL X3 DAYS AND ABDOMINAL PAIN BLQ. PT AAOX3, VSS. DENIES DIZZINESS, N/V, CP, SOB @ THIS TIME. PT SEEN & EVAL'D BY MARIAJOSE VALDERRAMA. MEDICATED FOR PAIN, PT ADIN WELL. WILL CONT TO MONITOR.
[2018-03-26] MEDS ORDERED: CT SWABBABLE VALVE TRANS SET 1 EA INFUS.SET MC ONE (22:43)
[2018-03-26] MEDS ORDERED: IOHEXOL-300 100 ML VIAL IV ONE (22:43)
[2018-03-26] MEDS ORDERED: IV NS 0.9% 250 ML IV ONE (22:44)
--- NOTE | 2018-03-26 23:41 | NUR ---
PT BACK FROM CT. PT STS ABD PAIN IS BETTER 10/07, ADIN WELL. DENIES N/V/D @ THIS TIME. WILL CONT TO MONITOR.
[2018-03-26] MEDS ORDERED: LIDOCAINE 2% JEL UROJET 10 ML MM ONE (23:49)
[2018-03-27] MEDS ORDERED: LIDOCAINE 2% JEL UROJET 10 ML MM ONE
--- NOTE | 2018-03-27 00:02 | NUR ---
URINE COLLECTED VIA I&O CATH, PT ADIN WELL. URINE SENT TO LAB. REPORT GIVEN TO FITO MCDUFFIE FOR SABRINA.
[2018-03-27 00:14] LABS: APPEARANCE,URINE CLEAR (CLEAR); BILIRUBIN,URINE NEGATIVE (NEGATIVE); BLOOD, URINE NEGATIVE Ery/uL (NEGATIVE); COLOR,URINE YELLOW (YELLOW); KETONES,URINE 1+ (NEGATIVE); LEUKOCYTE ESTERASE ,URINE NEGATIVE (NEGATIVE); NITRITE, URINE NEGATIVE (NEGATIVE); PH,URINE 7.5 (5.0-8.0); PROTEIN,URINE NEGATIVE (NEGATIVE); UGLUCOSE NEGATIVE (NEGATIVE); UROBILINOGEN,URINE 0.2 EU/dL (0.2)
[2018-03-27 00:27] LABS: BACTERIA,URINE Few /HPF (None Seen); MUCUS,URINE Few /LPF (None Seen); RBC,URINE 0-2 /HPF (0-2); SQUAMOUS EPITHELIAL CELL,UR Rare /HPF (None Seen); URINE AMORPHOUS PHOSPHATES Few /HPF (None Seen)
--- NOTE | 2018-03-27 01:57 | NUR ---
0PT NOTIFIED OF PLANS OF ADMISSION. DENIES ANY SX'S OF DISTRESS. RESP EVEN AND UNLABORED AND ON MONITOR.
[2018-03-27] MEDS ORDERED: PIPERACILLIN /TAZOBACTAM 3.375 G in IV D5W 50 ML IV ONE (02:00)
[2018-03-27] MEDS ORDERED: methylPREDNISolone SOD SUCC 125 MG/2ML VIAL IV ONE (02:00)
[2018-03-27] MEDS ORDERED: methylPREDNISolone SOD SUCC 125 MG/2ML VIAL ONE (02:12)
[2018-03-27] MEDS ORDERED: PIPERACILLIN /TAZOBACTAM 3.375 G VIAL IV ONE (02:12)
--- NOTE | 2018-03-27 02:21 | NUR ---
PT ASSIGNED TO MS 202
--- NOTE | 2018-03-27 02:32 | NUR ---
REPORT GIVEN TO ANGELA/FITO
--- NOTE | 2018-03-27 03:00 | NUR ---
PT PRESENTED TO DR. NOVAK AND TO BE TRANSFERED TO MS FLOOR.
[2018-03-27 03:05] VITALS: BP 146/84
[2018-03-27 03:47] VITALS: BP 146/84
--- NOTE | 2018-03-27 04:00 | NUR ---
RN ADMITTING NOTES; RECEIVED PT FROM ER, AWAKE AND ALERT. NOTED W/ WEAKNESS . BREATHING EVENLY. NO SOB, NAD. VSS. NO FEVER. DENIED ANY PAIN OR DISCOMFORT. NO N/V. SKIN CHECK DONE. PT ABLE TO PROVIDE MEDICAL HX AND MAKE HIS NEEDS KNOWN NEEDS ATTENDED. ASSISTED W. ADLS, BED LOW LOCKED . CALL LIGHT WITHIN REACH, WILL CONT TO MONITOR AND WILL F/U W/ MD'S ORDERS.
--- NOTE | 2018-03-27 04:05 | NUR ---
PT HAS $83.94 IN HIS BELONGINGS WHICH HE REFUSED TO SEND THE MONEY TO THE SAFE. RISK VS. BENEFITS WERE EXPLAINED TO THE PT AND PT MADE AWARE THAT HOSPITAL STAFF ARE NOT RESPONSIBLE FOR ANY LOSS. PT VERBALIZED UNDERSTANDING .
--- NOTE | 2018-03-27 05:04 | NUR ---
DALE NOVAK FOR ADMITTING ORDERS.
[2018-03-27] MEDS: IV 1/2NS 1000 ML 1,000 ML IV PRN ×2 (05:25→18:38)
[2018-03-27] MEDS ORDERED: HYDROCODONE/APAP 5/325MG 1 EACH TABLET PO PRN (05:30)
[2018-03-27] MEDS ORDERED: MAGNESIUM HYDROXIDE 30 ML UDC PO PRN (05:30)
[2018-03-27] MEDS ORDERED: MAG HYDROX/AL HYDROX/SIMETH 30 ML UDC PO PRN (05:30)
[2018-03-27] MEDS ORDERED: ZOLPIDEM TARTRATE 5 MG TABLET PO PRN (05:30)
[2018-03-27] MEDS ORDERED: ACETAMINOPHEN 325 MG TABLET PO PRN (05:30)
[2018-03-27] MEDS ORDERED: Z GUARD REMEDY 2 OZ OINT TP PRN (05:30)
[2018-03-27] MEDS ORDERED: ONDANSETRON HCL/PF 4 MG/2 ML VIAL IVP PRN (05:30)
--- NOTE | 2018-03-27 07:00 | NUR ---
PT IN BED . AWAKE AND ALERT. BREATHING EVENLY. NO SOB. NAD. NO ACUTE EVENT DURING THE NIGHT, NO C/O PAIN OR DISCOMFORT. NO EPISODE OF DIARRHEA SINCE ADMISSION. ON ONGOING IVF AND W/ NO A/R. NEEDS ATTENDED . WILL CONT TO MONITOR AND WILL ENDORSE TO AM SHIFT FOR SABRINA.
--- NOTE | 2018-03-27 07:28 | NUR ---
RN NOTES PATIENT A/OX3, BREATHING EVEN AND UNLABORED, NO SOB NOTED, STILL C/O ABDOMINAL PAIN BUT TOLERABLE AT THIS TIME. KEPT COMFORTABLE, NEEDS ATTENDED AND MET, CALL LIGHT WITHIN REACH, WILL CONTINUE TO MONITOR.
[2018-03-27 08:00] VITALS: BP 139/85
--- NOTE | 2018-03-27 08:12 | NUR ---
WOUND CARE CONSULT: PT PRESENTS WITH DRY FOREHEAD SCAR AND BILATERAL FOREARM SCABS WITH PURULENT DRAINAGE, PRESENT ON ADMISSION. PT NOTED TO HAVE SACRAL SCAR. RECOMMEND SURGICAL CONSULT. ALL SKIN PROTECTION RECOMMENDATIONS DISCUSSED WITH NURSING STAFF. WILL SEE PRN. GUTHRIE IN AGREEMENT WITH PLAN OF CARE. Addendum: 03/27/18 at 0814 by MATEO SALDAÑA WNDNU Amended: Links added.
[2018-03-27] MEDS: PANTOPRAZOLE 40 MG VIAL IV SCH (08:42)
[2018-03-27] MEDS: PIPERACILLIN /TAZOBACTAM 3.375 G in IV D5W 50 ML IV SCH ×3 (11:37→23:27)
[2018-03-27] MEDS ORDERED: PIPERACILLIN /TAZOBACTAM 4.5 G in IV D5W 50 ML IV SCH (12:00)
--- NOTE | 2018-03-27 13:02 | NUR ---
RN NOTES PATIENT SEEN BY UNA ANGELO NP, DID A WOUND DEBRIDEMENT ON BILATERAL FOREARM AND FOREHEAD. PATIENT TOLERATED PROCEDURE WELL, DRESSING C/D/I. NEEDS ATTENDED AND MET, CALL LIGHT WITHIN REACH, WILL CONTINUE TO MONITOR.
[2018-03-27] MEDS: NEOMY SULF/BACITRAC ZN/POLY 15 GM TUBE TP SCH (14:08)
[2018-03-27 16:00] VITALS: BP 116/67
--- NOTE | 2018-03-27 18:19 | NUR ---
RN NOTES PATIENT A/OX3, WOUND TREATMENT RENDERED, ENCOURAGED PATIENT TO TURN AND REPOSITION, IVF INFUSING AND TOLERATING WELL, HAD A BM X1 THROUGHOUT THIS SHIFT, LOOSE STOOL, COLLECTED AND SENT TO LAB, NEEDS ATTENDED AND MET, CALL LIGHT WITHIN REACH, WILL ENDORSE TO STAFF REPORTER FOR SABRINA.
--- NOTE | 2018-03-27 19:30 | NUR ---
MS RN NOTE: PATIENT RESTING IN BED, NO ACUTE DISTRESS NOTED. BREATHING EVEN AND UNLABORED, NO SOB NOTED. IV TO LAC IN PLACE, INFUSING 1/2NS AT 75ML/HR. DRESSING TO BUE AND FOREHEAD IN PLACE, NO BLEEDING NOTED. BED LOCKED AND IN LOWEST POSITION, CALL LIGHT IN REACH, WILL CONTINUE TO MONITOR.
[2018-03-27 20:00] VITALS: BP 116/71
--- NOTE | 2018-03-28 02:00 | NUR ---
MS RN NOTE: PATIENT SLEEPING NO ACUTE DISTRESS NOTED. BREATHING EVEN AND UNLABORED, NO SOB NOTED. NO EPISODE OF DIARRHEA YET THROUGH SPECIAL PROCEDURES TECH. BED LOCKED AND IN LOWEST POSITION, CALL LIGHT IN REACH. WILL CONTINUE TO MONITOR.
[2018-03-28] MEDS: IV 1/2NS 1000 ML 1,000 ML IV PRN (05:46)
[2018-03-28] MEDS: PIPERACILLIN /TAZOBACTAM 3.375 G in IV D5W 50 ML IV SCH ×3 (05:46→18:27)
--- NOTE | 2018-03-28 06:05 | NUR ---
MS RN NOTE: PATIENT MOVED TO ROOM 319, NO ACUTE DISTRESS NOTED. BREATHING EVEN AND UNLABORED, NO SOB NOTED. IV TO LAC IN PLACE, INFUSING 1/2NS AT 75ML/HR. DRESSING TO BUE AND FOREHEAD IN PLACE, NO BLEEDING NOTED. BELONGINGS ALL BROUGHT UP TO NEW ROOM. BED LOCKED AND IN LOWEST POSITION, CALL LIGHT IN REACH, WILL ENDORSE TO DAY NURSE TO CONTINUE WITH PLAN OF CARE.
[2018-03-28 07:50] LABS: BASOPHILS # (AUTO) 0.1 /CMM (0.0-0.2); BASOPHILS % (AUTO) 1.8 % (0.0-2.0); EOSINOPHILS % (AUTO) 0.2 % (0.0-6.0); HEMATOCRIT 37 % (39-51); HEMOGLOBIN 11.6 g/dL (13.5-17.5); LYMPHOCYTES # (AUTO) 0.7 /CMM (0.8-4.8); LYMPHOCYTES % (AUTO) 9.3 % (20.0-44.0); MEAN CORPUSCULAR HGB CONC 32 g/dl (31.0-36.0); MEAN CORPUSCULAR VOLUME 83 fL (80-96); MONOCYTES # (AUTO) 0.3 /CMM (0.1-1.30); MONOCYTES % (AUTO) 3.9 % (2.0-12.0); NEUTROPHILS # (AUTO) 6.6 /CMM (1.8-8.9); NEUTROPHILS % (AUTO) 84.8 % (43.0-81.0); PLATELET COUNT (AUTO) 241 /CMM (150-450); WHITE BLOOD COUNT (AUTO) 7.8 K/uL (4.3-11.0)
[2018-03-28 07:51] LABS: BILIRUBIN,TOTAL 0.6 mg/dL (0.2-1.0); CALCIUM, SERUM 8.5 mg/dL (8.5-10.1); CREATININE 0.9 mg/dL (0.6-1.3); MAGNESIUM 1.9 mg/dL (1.8-2.4); PHOSPHORUS 2.5 mg/dL (2.5-4.9); POTASSIUM 3.6 mmol/L (3.5-5.1); TOTAL PROTEIN, SERUM 6.8 g/dL (6.4-8.2)
[2018-03-28 08:00] VITALS: BP 137/81
[2018-03-28 09:10] LABS: NEUTROPHILS % (MANUAL) 83 (42-76)
[2018-03-28 09:11] LABS: LYMPHOCYTES % (MANUAL) 9 % (16-48); MONOCYTES % (MANUAL) 8 % (0-11.0)
[2018-03-28] MEDS: PANTOPRAZOLE 40 MG VIAL IV SCH (09:24)
[2018-03-28] MEDS: NEOMY SULF/BACITRAC ZN/POLY 15 GM TUBE TP SCH (09:25)
--- NOTE | 2018-03-28 14:16 | NUR ---
Cesilia DEAN IN TO SEE PT.
[2018-03-28 16:00] VITALS: BP 140/85
--- NOTE | 2018-03-28 18:00 | NUR ---
NO CHANGE IN STATUS.
--- NOTE | 2018-03-28 19:30 | NUR ---
RN OPENING NOTES PT AWAKE AND ALERT X4, SITTING IN BED, SEMI-FOWLERS POSITION. PT IN ROOM AIR, TOLERATING WELL, NO SIGNS OF DISTRESS, NO LABORED BREATHING. IV ACCESS ON THE LEFT AC 20G PATENT AND INTACT. FOREHEAD DRESSING INTACT. BILATERAL UPPER EXTREMITY DRESSING INTACT, NO SIGNS OF BLEEDING OR SWELLING. PT DENIES ANY PAIN AT THIS MOMENT. SAFETY MEASURES IN PLACED, CALL LIGHT WITHIN REACH. WILL CONTINUE TO MONITOR PATIENT
[2018-03-28 20:00] VITALS: BP 138/88
--- NOTE | 2018-03-28 21:54 | NUR ---
RN NOTES/ WOUND DRESSING CHANGE BILATERAL UPPER EXTREMITY WOUNDS/SCABS CLEANSE WITH SALINE, PAT DRY, APPLIED XEROFORM GAUZE, WRAP W/ KERLIX, SECURED WITH BURN NET. WOUNDS ARE SLIGHTLY PINK, NO PUS, NO DRAINAGE, NO BLEEDING NOTICED.
[2018-03-29] MEDS: IV 1/2NS 1000 ML 1,000 ML IV PRN ×2 (00:26→16:11)
[2018-03-29] MEDS: PIPERACILLIN /TAZOBACTAM 3.375 G in IV D5W 50 ML IV SCH ×4 (00:27→18:34)
--- NOTE | 2018-03-29 07:00 | NUR ---
RN CLOSING NOTES PT AWAKE AND ALERT X4, SITTING IN BED, SEMI-FOWLERS POSITION. PT IN ROOM AIR, TOLERATING WELL, NO SIGNS OF DISTRESS, NO LABORED BREATHING. IV ACCESS ON THE LEFT UPPER ARM 20G PATENT AND INTACT. FOREHEAD DRESSING INTACT. BILATERAL UPPER EXTREMITY DRESSING INTACT, NO SIGNS OF BLEEDING OR SWELLING, DRESSING WAS CHANGE DURING THE SHIFT. DIET ADVANCED TO FULL LIQUID PER DR. LUNA, PT STATES "NO BAD REACTION TO THE PUDDING." WILL ENDORSE ADVANCED DIET TOLERATED TO THE ONCOMING NURSE. PT DENIES ANY PAIN AT THIS MOMENT. SAFETY MEASURES IN PLACED, CALL LIGHT WITHIN REACH. WILL ENDORSE CONTINUITY OF CARE TO THE ONCOMING RN.
--- NOTE | 2018-03-29 07:20 | NUR ---
MS/RN OPENING NOTE THE PATIENT IS RECEIVED IN BED. ALERT AND ORIENTED X4. DENIES SOB. RESPIRATION REGULAR AND UNLABORED. DENIES PAIN. THE PATIENT IN NO APPARENT DISTRESS. ABDOMEN SOFT AND NON-DISTENDED. NORMAL BOWEL SOUNDS HEARD IN ALL FOUR QAUDS. LAC G 20 PATENT AND IV FLUID INFUSING WITH NO S/S INFILTRATION. BED LOW AND LOCKED. SIDE RAILS UP X3. CALL LIGHT WITHIN REACH. WILL CONTINUE TO MONITOR.
[2018-03-29 08:00] VITALS: BP 118/79
[2018-03-29] MEDS: PANTOPRAZOLE 40 MG VIAL IV SCH (09:27)
[2018-03-29] MEDS: NEOMY SULF/BACITRAC ZN/POLY 15 GM TUBE TP SCH (09:33)
--- NOTE | 2018-03-29 15:57 | NUR ---
MS/RN NOTE RECEIVED AN ORDER TO DISCONTINUE FULL LIQUID DIET AND STARTING FROM 03/29/18 DINNER NEW ORDER OF PUREED DIET. THE ORDERS NOTED AND CARRIED OUT. THE PATIENT IS MADE AWARE.
[2018-03-29 16:00] VITALS: BP 122/74
--- NOTE | 2018-03-29 18:45 | NUR ---
MS/RN CLOSING NOTE PATIENT ALERT AND ORIENTED X4. DENIES SOB. PATIENT IN ROOM AIR AND SATURATION AT 97%. RESPIRATION REGULAR AND UNLABORED. DENIES PAIN. LEFT UPPER ARM G 20 PATENT AND 1/2 NS INFUSING AT 75ML/HR AND NO S/S INFILTRATION NOTED. BED LOW AND LOCKED. SIDE RAILS UP X3. CALL LIGHT WITHIN REACH. WILL ENDORSE TO SOFA BACK UPHOLSTERER.
--- NOTE | 2018-03-29 19:31 | NUR ---
RN OPENING NOTES PT AWAKE AND ALERT X4, SITTING IN BED. PT IN ROOM AIR, TOLERATING WELL, NO SIGNS OF DISTRESS, NO LABORED BREATHING. IV ACCESS ON THE LEFT UPPER ARM 20G PATENT AND INTACT. FOREHEAD DRESSING INTACT. BILATERAL UPPER EXTREMITY DRESSING INTACT, NO SIGNS OF BLEEDING OR SWELLING. PT DENIES ANY PAIN AT THIS MOMENT. SAFETY MEASURES IN PLACED, CALL LIGHT WITHIN REACH. WILL CONTINUE TO MONITOR PATIENT
[2018-03-29 20:00] VITALS: BP 106/69
--- NOTE | 2018-03-29 21:38 | NUR ---
RN NOTES/ WOUND DRESSING CHANGE WOUND DRESSING CHANGE DONE. BUE AND FOREHEAD, CLEANSED WITH NS, PAT DRY, COVERED WITH XEROFORM AND DRY DRESSING, WRAPPED IN KERLIX, COVERED WITH BURN NET. PICTURES ARE TAKEN, PLACED IN THE CHART
[2018-03-30] MEDS: PIPERACILLIN /TAZOBACTAM 3.375 G in IV D5W 50 ML IV SCH ×2 (00:33→06:33)
[2018-03-30] MEDS: IV 1/2NS 1000 ML 1,000 ML IV PRN (06:33)
--- NOTE | 2018-03-30 06:48 | NUR ---
RN CLOSING NOTES PT AWAKE AND ALERT X4, SITTING IN BED. PT IN ROOM AIR, TOLERATING WELL, NO SIGNS OF DISTRESS, NO LABORED BREATHING. IV ACCESS ON THE LEFT UPPER ARM 20G PATENT AND INTACT. FOREHEAD DRESSING INTACT. BILATERAL UPPER EXTREMITY DRESSING INTACT, NO SIGNS OF BLEEDING OR SWELLING. BOTH DRESSINGS WERE CHANGED DURING THE SHIFT, PICTURES WERE TAKEN AND PLACED IN THE CHART. PT DENIES ANY PAIN AT THIS MOMENT. SAFETY MEASURES IN PLACED, CALL LIGHT WITHIN REACH. WILL ENDORSE CONTINUITY OF CARE TO THE ONCOMING RN.
--- NOTE | 2018-03-30 07:10 | NUR ---
MS RN NOTES PATIENT IN BED ALERT ORIENTED X 3. NO ACUTE DISTRESS NOTED. BREATHING UNLABORED. NO SOB NOTED. IV ACCESS PATENT AND INTACT, NO SWELLING OR REDNESS NOTED. SAFETY MEASURES IN PLACE. CALL LIGHT WITHIN REACH. WILL CONTINUE TO MONITOR ACCORDINGLY.
[2018-03-30 08:00] VITALS: BP 91/56
[2018-03-30] MEDS: PANTOPRAZOLE 40 MG VIAL IV SCH (08:16)
[2018-03-30] MEDS: NEOMY SULF/BACITRAC ZN/POLY 15 GM TUBE TP SCH (08:16)
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
--- NOTE | 2018-03-30 11:05 | NUR ---
MS RN NOTES SEEN AND EVALUATED BY IDANIA DEAN NP WITH NEW ORDERS MADE. NOTED AND CARRIED OUT.
--- NOTE | 2018-03-30 12:00 | NUR ---
MS ASSEMBLER ENGINE NOTES PATIENT DISCHARGED HOME WITH STABLE VITAL SIGNS. NO ACUTE DISTRESS NOTED. BREATHING UNLABORED. NO SOB NOTED. DISCHARGE INSTRUCTIONS GIVEN TO THE PATIENT, INCLUDING NEW PRESCRIPTION AND FOLLOW UP APPOINTMENT, VERBALIZED UNDERSTANDING. RIGHT AND LEFT UPPER ARM WITH CLEAN AND DRY DRESSING, NO S/SX OF INFECTION NOTED. ALL BELONGINGS ACCOUNTED FOR. IV ACCESS PATENT REMOVED, NO BLEEDING OR SWELLING OR REDNESS NOTED. ALL BELONGINGS ACCOUNTED FOR. NEED ATTENDED AND ANTICIPATED. WHEELED TO THE LOBBY, ASSISTED TO A PRIVATE CAR PICKED UP BY A FRIEND.
== END 2018-03-30 12:30 | disposition home or self-care (01) | DRG 245 ==
LOC: ER 21:09 → MEDSG2 03-27 02:36 → MED 03-28 06:10
PROVIDERS: ADMIT Internal Medicine; ATTEND Internal Medicine
PROC: 0JBD0ZZ Excision of Right Upper Arm Subcutaneous Tissue and Fascia, Open Approach (ICD-10-PCS; principal; 2018-03-27)
PROC: 0JBF0ZZ Excision of Left Upper Arm Subcutaneous Tissue and Fascia, Open Approach (ICD-10-PCS; principal; 2018-03-27)
PROC: 0JB10ZZ Excision of Face Subcutaneous Tissue and Fascia, Open Approach (ICD-10-PCS; principal; 2018-03-27)
DX: K51.30 Ulcerative (chronic) rectosigmoiditis without complications (principal); E44.1 Mild protein-calorie malnutrition; B19.20 Unspecified viral hepatitis C without hepatic coma; D64.9 Anemia, unspecified; S01.81XA Laceration without foreign body of other part of head, initial encounter; F11.90 Opioid use, unspecified, uncomplicated; K52.9 Noninfective gastroenteritis and colitis, unspecified; N40.0 Benign prostatic hyperplasia without lower urinary tract symptoms; S51.811A Laceration without foreign body of right forearm, initial encounter; S51.812A Laceration without foreign body of left forearm, initial encounter; X58.XXXA Exposure to other specified factors, initial encounter; Y92.9 Unspecified place or not applicable; I10 Essential (primary) hypertension; Z82.49 Family history of ischemic heart disease and other diseases of the circulatory system; Z90.49 Acquired absence of other specified parts of digestive tract; Z91.81 History of falling; Z88.2 Allergy status to sulfonamides; F15.11 Other stimulant abuse, in remission; F19.10 Other psychoactive substance abuse, uncomplicated
CPT/HCPCS: 36415; 71045-TC; 71260-TC; 80048-TC; 80053-TC; 80061-TC; 80076-TC; 81000-TC; 83690-TC; 83735-TC; 84100-TC; 84484-TC; 85025-TC; 85730-TC; 87081-TC; A4606; A6402; A6403; C9113; J2270; J2405; J2543; J2930; J3490; J7030; J7050; J7060; Q9967; Z7610

== ENCOUNTER 2019-01-10 06:34 | Inpatient (IN) | payer MEDICARE, MEDICAID ==
[~2019-01-10] VITALS: Ht 175.3 cm; Wt 63.5 kg
--- NOTE | 2019-01-10 06:35 | NUR ---
PT BIBSELF C/O WEAKNESS/DIZZINESS X 1 DAY AFTER DRINKING COFFEE, PT STATES HE HAD ON EPISODE OF N/V. PT AXO4. RESPIRATIONS EVEN AND UNLABORED. PT PUT ON THE FORMATION FRACTURING OPERATOR AND PULSE OX.
[2019-01-10 07:27] LABS: CALCIUM, SERUM 9.3 mg/dL (8.5-10.1); CARBON DIOXIDE 29 mmol/L (21-32); CHLORIDE 105 mmol/L (98-107); CREATININE 1.1 mg/dL (0.6-1.3); GLUCOSE 137 mg/dL (74-106); POTASSIUM 3.8 mmol/L (3.5-5.1); SODIUM SERUM 142 mmol/L (136-145); UREA NITROGEN, BLOOD 25 mg/dL (7-18)
[2019-01-10 07:29] LABS: BASOPHILS % (AUTO) 0.7 % (0.0-2.0); EOSINOPHILS % (AUTO) 0.2 % (0.0-6.0); HEMATOCRIT 38 % (39-51); HEMOGLOBIN 12.5 g/dL (13.5-17.5); LYMPHOCYTES # (AUTO) 0.7 /CMM (0.8-4.8); LYMPHOCYTES % (AUTO) 13.3 % (20.0-44.0); MEAN CORPUSCULAR HGB CONC 33 g/dl (31.0-36.0); MEAN CORPUSCULAR VOLUME 84 fL (80-96); MONOCYTES # (AUTO) 0.4 /CMM (0.1-1.30); NEUTROPHILS # (AUTO) 3.9 /CMM (1.8-8.9); NEUTROPHILS % (AUTO) 77.8 % (43.0-81.0); PLATELET COUNT (AUTO) 245 /CMM (150-450); RED BLOOD CELL COUNT(AUTO) 4.48 MIL/uL (4.5-6.0)
[2019-01-10 07:33] LABS: ALANINE AMINOTRANSFERASE 30 U/L (12-78); ALBUMIN 3.9 g/dL (3.4-5.0); ALCOHOL, BLOOD < 3 mg/dL (0-0); ALKALINE PHOSPHATASE 68 U/L (46-116); ASPARTATE AMINOTRANSFERASE 26 U/L (15-37); BILIRUBIN,DIRECT 0.2 mg/dL (0.0-0.2); BILIRUBIN,TOTAL 0.8 mg/dL (0.2-1.0); TOTAL PROTEIN, SERUM 7.9 g/dL (6.4-8.2)
--- NOTE | 2019-01-10 07:36 | NUR ---
REPORT GIVEN TO ZAY PAYTON FOR SABRINA.
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
--- NOTE | 2019-01-10 10:10 | NUR ---
SECURITY CALLED FOR WANDING
--- NOTE | 2019-01-10 10:38 | NUR ---
PT GPS VIA WHEELCHAIR FOR CONT OF CARE.
[2019-01-10] MEDS ORDERED: MAGNESIUM HYDROXIDE 30 ML UDC PO PRN (11:00)
[2019-01-10] MEDS ORDERED: LORAZEPAM 0.5 MG TABLET PO PRN (11:00)
[2019-01-10] MEDS ORDERED: ACETAMINOPHEN 325 MG TABLET PO PRN (11:00)
[2019-01-10] MEDS ORDERED: MAG HYDROX/AL HYDROX/SIMETH 30 ML UDC PO PRN (11:00)
[2019-01-10 16:00] VITALS: BP 129/61
--- NOTE | 2019-01-10 17:20 | NUR ---
RN-CO: DR DAMARIS HAND NOTIFIED OF THE NEW ADMISSION.
--- NOTE | 2019-01-10 18:52 | NUR ---
RN NOTE:PATIENT SEEN BY DAMARIS HAND DNP ,NOTIFIED HIM URINE IS POSITIVE OPIAD AND AMPHETAMINE .
[2019-01-10 20:00] VITALS: BP 124/83
--- NOTE | 2019-01-10 22:00 | NUR ---
gps rn notes: patient noted to be restless and hallucinating in his bed. when asked, patient claims that he is detoxing right now. per patient he claims that he uses heroine and that he had 30 units today(the morning of his admission. paged dr. savage for any further orders. waiting for call back. patient in bed, provided with more oral fluids. bed alarm on. instructed the patient to call for assistance in going to the restroom. vital signs checked. 158/74, 79-hr. nurse stayed at the patient's doorway for assistance when needed. will continue to monitor.
[2019-01-11 08:00] VITALS: BP 142/82
[2019-01-11 08:27] LABS: ALBUMIN 3.8 g/dL (3.4-5.0); BILIRUBIN,TOTAL 1.1 mg/dL (0.2-1.0); CALCIUM, SERUM 9.3 mg/dL (8.5-10.1); CREATININE 0.9 mg/dL (0.6-1.3); POTASSIUM 3.7 mmol/L (3.5-5.1); TOTAL PROTEIN, SERUM 7.6 g/dL (6.4-8.2)
--- NOTE | 2019-01-11 09:40 | NUR ---
RN NOTE:PATIENT C/O PAIN IN STOMACH DAMARIS HAND DNP CALLED WITH NEW ORDER OPAL PO Q6HR PRN AND PAIN CONSULT ALL ORDERS CARRIED OUT ,LEFT Marixa HUTCHINSON Addendum: 01/11/19 at 1905 by MOHSEN SINGER LEFT A MASAGE FOR , WAITING FOR HIS CALL .
[2019-01-11] MEDS ORDERED: HYDROCODONE/APAP 5/325MG 1 EACH TABLET PO PRN (10:00)
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
--- NOTE | 2019-01-11 12:56 | NUR ---
INITIAL DISCHARGE PLAN: Patient states he lives at [address] [facility] [address]. Per pts friend Miryea Hollis [phone] pt is homeless and lives in with no running water and needs SNF placement. Pt wishes to return to his home where he states he lives with other friends. SW will help form a safe and proper discharge plan in collaboration with .
--- NOTE | 2019-01-11 15:00 | NUR ---
GROUP NOTE: SW prompted pt to attend group on this present day to discuss discharge planning. Pt refused to attend stating he was not feeling well as he was detoxing.
[2019-01-11 16:00] VITALS: BP 150/90
--- NOTE | 2019-01-11 18:41 | NUR ---
RN NOTE:PATIENT C/O PAIN GENERALIZE AND STOMACH MEDICATED WITH NORCO 5MG/325MG GIVEN PAIN LEVEL 8/10 WILL CONTINUE TO MONITOR .
--- NOTE | 2019-01-11 19:09 | NUR ---
RN-CO: Patient has a friend named Abby who came and visited the patient. She is very loud and rude to the staff especially to the primary RN. She was demanding from the staff to released information to her and to discharge the patient, even though she is not the responsible constitution party. RN explained that its only the psychiatrist that can discharge him but remains challenging the RN. She stated that she worked in the Mental health but did not elaborate.
[2019-01-11 20:02] VITALS: BP 148/94
--- NOTE | 2019-01-12 07:43 | NUR ---
01/11/2019 @20:00 :I received a call from Mireya Hollis saying that Abby (the visitor of the patient) is the executive administrative asst of one of the federal agency.And Abby found the patient in the trailer and she is just extending help to the patient.
[2019-01-12 08:00] VITALS: BP 139/69
--- NOTE | 2019-01-12 11:12 | NUR ---
CAM received a call from pts friend Abby [phone] requesting SW have pt sign paperwork that states he appoints her as his decision maker and also was demanding pt be discharged when his 72 hour hold is up. CAM explained LPS hold process and also informed her that SW was unable to provide additional information regarding pts treatment due to HIPAA. CAM provided Abby with director of social service phone number to address her needs further.
[2019-01-12] MEDS: ACETAMINOPHEN 325 MG TABLET PO SCH ×2 (12:36→20:36)
[2019-01-12] MEDS: METHADONE HCL 5 MG TABLET PO SCH ×2 (12:38→16:54)
--- NOTE | 2019-01-12 12:39 | NUR ---
RN NOTE: PATIENT COMPLAINING OF 8/10 BACK PAIN. TYLENOL GIVEN.
--- NOTE | 2019-01-12 13:24 | NUR ---
CAM contacted pts friend Abby [phone] and left a voicemail informing her per charge nurse she is unable to visit pt on this present day and also informed her that once the probable cause hearing is scheduled SW will ask pt if he wishes for her to attend and if he says yes then SW will inform her.
--- NOTE | 2019-01-12 14:41 | NUR ---
CAM received a call from pts friend Mireya Hollis [phone] stating that she had received a call from Abby. Mireya Hollis stated that she does not know Abby and that she believes she is trying to take advantage of pt. She stated that pt does not live with her and that she allows him to park his RV in front of her home. Mireya Hollis suggested SW get in contact with pts daughter Shari via email as SW informed her that Abby is attempting to have pt sign his rights over to her and wants him to appoint her as his decision maker. Mireya Hollis stated that Abby should not be making decision for pt as pt has a daughter who is involved in his care.
--- NOTE | 2019-01-12 14:54 | NUR ---
CAM emailed pts daughter Shari at [email or web address] the following: "Dhaval Shari, I am Yanira outreach and education social worker at [facility]. I have been in contact with Mireya Hollis and have been discussing your fathers care with her. As you may know he is currently on a 5150 hold here at [facility] for grave disability as he is currently unable to provide for his own half-way, clothing, or food and needs assistance. Mireya Hollis informed me that he is currently homeless and was released from assisted a couple of years ago. He has a friend Abby who has been coming for the past 2 days to visit him and has been causing disturbance demanding he be discharged immediately and also wants him to sign paperwork stating that she is able to make decisions on his behalf. My resident services supervisor and I have both talked to her and have informed her that he is unable to sign any paperwork and also have not allowed her to come visit him on this present day. I want to coordinate his care with you and wish to meet you so we can appropriately plan for his discharge."
[2019-01-12 16:00] VITALS: BP 126/66
[2019-01-12] MEDS: OLANZAPINE 2.5 MG TABLET PO SCH (20:00)
[2019-01-12 20:06] VITALS: BP 109/79
[2019-01-12] MEDS ORDERED: VITAMINS A AND D 56.7 GM TUBE TP PRN (23:00)
[2019-01-13] MEDS: ACETAMINOPHEN 325 MG TABLET PO SCH ×3 (05:00→20:30)
[2019-01-13 07:28] LABS: CALCIUM, SERUM 8.8 mg/dL (8.5-10.1); CREATININE 1.1 mg/dL (0.6-1.3); POTASSIUM 4.1 mmol/L (3.5-5.1)
[2019-01-13 08:00] VITALS: BP 119/87
[2019-01-13] MEDS: METHADONE HCL 5 MG TABLET PO SCH ×2 (08:21→16:18)
--- NOTE | 2019-01-13 08:56 | NUR ---
SW received an email from pts daughter Orly Mccarthy stating the following: "Please DO NOT give this woman any authority over Ezra, or have her to sign any papers. And that only family is allowed to do that. Thank you for not allowing her to sign anything. We just need to figure out a way."
--- NOTE | 2019-01-13 10:22 | NUR ---
WOUND CARE CONSULT WOUND CARE RECEIVED CONSULT FOR LEFT LEG REDNESS/ABRASION. WOUND CARE WILL DEFER CONSULT AND TREATMENT PLANS TO PLASTIC SURGICAL TEAM WHO ARE CURRENTLY FOLLOWING THIS PATIENT. PATIENT WITH PRISCILLA AT 17, ALL PRESSURE ULCER PREVENTION MEASURES ARE NOTED TO BE IN PLACE. WILL SEE PRN.
--- NOTE | 2019-01-13 12:24 | NUR ---
encourage patient to drink more fluid. pt acknowledge and will try to drink more throughout the day.
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
--- NOTE | 2019-01-13 15:53 | NUR ---
APS REPORT: CMA mailed SOC 341 form to Adult Protective Service Address: [address] [place] [address], [place] [address].
[2019-01-13 16:00] VITALS: BP 119/86
[2019-01-13 19:53] VITALS: BP 123/76
[2019-01-13] MEDS: OLANZAPINE 2.5 MG TABLET PO SCH (20:00)
--- NOTE | 2019-01-13 20:32 | NUR ---
GPS-RN PATIENT REFUSED HIS SCHEDULED ZYPREXA MEDICATION. DESPITE OF EDUCATION THE RISKS AND BENEFITS. PATIENT STATED "I DON'T NEED IT". PATIENT STILL REFUSED.
[2019-01-14] MEDS: ACETAMINOPHEN 325 MG TABLET PO SCH ×4 (06:06→20:38)
[2019-01-14 08:00] VITALS: BP 117/82
[2019-01-14] MEDS: METHADONE HCL 5 MG TABLET PO SCH ×2 (08:25→16:50)
[2019-01-14] MEDS: OLANZAPINE 2.5 MG TABLET PO SCH ×3 (08:28→20:12)
--- NOTE | 2019-01-14 08:29 | NUR ---
GPS/RN NOTES MEDICATION ZYPREXA WAS REFUSED BY PATIENT. EXPLAINED RISK AND BENEFITS X3. REFUSED X3. PATIENT STATED " I DONT WANT TO TAKE IT RIGHT NOW". DISPOSED MEDICATION PROPERLY. PATIENT REMAINS IN STABLE CONDITION. WILL CONTINUE TO MONITOR CLOSELY.
--- NOTE | 2019-01-14 09:34 | NUR ---
PC Hearing Notification: CAM emailed the pt's daughter, Shari, at her email [email or web address] the following: "Dhaval Mccarthy, My name is Catarina and I am a socially responsible investment adviser here at [facility]. Yanira is out today and therefore I am covering for her. I wanted to inform you that Ezra has a Probable Cause Hearing this afternoon. This is when a Armoured Car Escort will come and review Afia case through the information I present from his chart and through the information from his Advocate. Ezra has the right to attend this hearing and he has a right to contest the hearing meaning that he would like to be discharged. I will inform you about the hearing officers decision once the hearing is completed. Please feel free to ask me any questions as well!"
--- NOTE | 2019-01-14 09:36 | NUR ---
PC Hearing: CAM contacted pts friend Mireya Hollis [phone] and informed her that the pt has a hearing later this afternoon and explained what the hearing entails and all the possible outcomes. She stated that she cannot be present due to her residing in [place] but stated that she would communicate with the pt's daughter.
[2019-01-14 16:00] VITALS: BP 146/96
--- NOTE | 2019-01-14 18:52 | NUR ---
GPS/RN CLOSING NOTES PATIENT IN THE ROOM AWAKE, ALERT AND ABLE TO MAKE NEEDS KNOWN. PATIENT WAS SEEN AND EVALUATED BY DR. VALLE. NO NEW ORDERS AT THIS TIME. NO PAIN OR ACUTE DISTRESS AT THIS TIME. RESPIRATION EVEN AND UNLABORED. SKIN IS DRY WARM TO TOUCH. PATIENT ABLE TO TOLERATE MEALS WELL. PATIENT REFUSED TO TAKE HIS ZYPREXA. DR. VALLE WAS AWARE OF THE REFUSAL. PATIENT WAS ABLE TO WALK AROUND THE UNIT WITH A FWW. NO SI/HI. PATIENT REMAINS IN STABLE CONDITION THROUGHOUT. PROVIDED SAFETY AND COMFORT. ALL NEEDS ANTICIPATED. KEPT CLEAN AND DRY. CALL LIGHT WITHIN REACHED. BED LOCKED AND IN LOWEST POSITION. WILL CONTINUE TO MONITOR. ENDORSED TO PM NURSE FOR SABRINA
[2019-01-14 20:00] VITALS: BP 121/75
--- NOTE | 2019-01-14 20:40 | NUR ---
TYLENOL 650 MG TAB PO DUE FOR 2100, REFUSED, PATIENT STATED," I DON'T NEED IT, THANK YOU."
--- NOTE | 2019-01-14 20:41 | NUR ---
OLANZAPINE 2.5 MG TAB PO REFUSED. PATIENT STATED, " I DON'T TAKE OLANZAPINE."
[2019-01-15] MEDS: ACETAMINOPHEN 325 MG TABLET PO SCH ×2 (05:00→12:27)
[2019-01-15 08:00] VITALS: BP 117/81
[2019-01-15] MEDS: METHADONE HCL 5 MG TABLET PO SCH ×2 (08:30→17:30)
[2019-01-15] MEDS: OLANZAPINE 2.5 MG TABLET PO SCH (08:30)
--- NOTE | 2019-01-15 08:31 | NUR ---
RN NOTE: PATIENT REFUSED HIS 0900 ZYPREXA, STATED THAT HE DOESNT TAKE PSYCH MEDS.
--- NOTE | 2019-01-15 10:27 | NUR ---
DISCHARGE PLAN: Pt will be discharged at 5:00pm via private vehicle home to [address] [place] [address]. Pts friend NASH [phone] will be picking him up and transporting home. Pts mood is euthymic with congruent affect. Pt denied visual/auditory hallucinations and denied suicidal/homicidal ideation. Pt was provided a referral to [facility] [address] [facility] [id number] and encouraged to present on Friday01/18/19 before 5:00pm for an intake. Pt was also provided a referral to [facility] Address: [address] [place] [address] . For smoking cessation, patient was referred to the [employer] and [employer] 810-Utut-FLO. Patient was also referred to the Nicotine Anonymous meeting on Friday01/18/19 at 7:00pm at [address] [place] [address], [address] [facility] [address]. Patient was referred to the [facility] [address] [place] [address] / and was encouraged to present at 9am on Friday, January 18, 2019. Additional resources included [facility] [address] [place] [address] and [facility] [address] [place] [address] .The multidisciplinary exit care form was done, printed, signed, and given to the patient.
[2019-01-15 16:00] VITALS: BP 129/90
--- NOTE | 2019-01-15 18:15 | NUR ---
CORPORATE SERVICES MANAGER NOTE: PATIENT IS A 68 YEAR OLD MALE GETTING DISCHARGED HOME TO [address] [place] [address]. PATIENT IS IN STABLE CONDITION. PATIENT IS COOPERATIVE WITH PLAN OF CARE. NO ACUTE DISTRESS NOTED. NEEDS WERE MET THROUGHOUT STAY. PATIENT DENIES SI/HI, VAH AT THE TIME OF DISCHARGE. BEHAVIOR HAS IMPROVED. VSS. PSYCHIATRIC TREATMENT PLANS MET. MEDICAL TREATMENT PLANS DEFERRED FOR CONTINUAL MONITORING. SKIN CHECK COMPLETE WITH UPDATED WOUND PHOTOS IN PATIENT'S CHART. DISCHARGE PAPERWORK SIGNED. EDUCATED PATIENT ABOUT AFTERCARE WITH A COPY OF INSTRUCTIONS. MED RECON COMPLETE WITH DR. VALLE AND TONA DEAN WITH ORDERS TO DISCONTINUE PSYCHIATRIC HOLD. FOR FOLLOW WITH WITH PSYCHIATRIST AT [facility] [address] [facility] [address] AND X RAY TECH AT [facility] Address: [address] [place] [address] IN 1 WEEK. PATIENT ALSO HAS A FOLLOW UP APPOINTMENT WITH PAIN SPECIALIST MARIKA MESA MD [id number] [facility] [address] [place] [address] [phone] 01/19/2019 @ 09:45 a.m. STRESSED THE IMPORTANCE OF NOT MISSING THE APPOINTMENT ON FRIDAY DUE TO PATIENT NOT HAVING ENOUGH METHADONE PAST THAT DAY. INFORMED PATIENT THAT THE PAIN SPECIALIST IS THE DOCTOR THAT WOULD BE PRESCRIBING THE METHADONE AND HOW IMPORTANT IT IS TO KEEP THE APPOINTMENT. PATIENT'S FRIEND CAME TO PICK HIM UP. BELONGINGS AND VALUABLES RETURNED TO PATIENT. PATIENT LEFT [facility] AT 1805 VIA PRIVATE TRANSPORTATION PROVIDED BY HIS FRIEND.
== END 2019-01-15 18:05 | disposition home or self-care (01) | DRG 885 ==
LOC: ER 06:39 → GPS 10:37
PROVIDERS: ADMIT Psychiatry & Neurology Psychosomatic Medicine; ATTEND Nurse Practitioner Acute Care
DX: F29 Unspecified psychosis not due to a substance or known physiological condition (principal); E43 Unspecified severe protein-calorie malnutrition; N17.0 Acute kidney failure with tubular necrosis; R64 Cachexia; Z68.20 Body mass index [BMI] 20.0-20.9, adult; Z73.6 Limitation of activities due to disability; N40.0 Benign prostatic hyperplasia without lower urinary tract symptoms; M62.50 Muscle wasting and atrophy, not elsewhere classified, unspecified site; I10 Essential (primary) hypertension; F11.10 Opioid abuse, uncomplicated; M47.816 Spondylosis without myelopathy or radiculopathy, lumbar region; L90.5 Scar conditions and fibrosis of skin; E88.09 Other disorders of plasma-protein metabolism, not elsewhere classified; S40.022A Contusion of left upper arm, initial encounter; S40.021A Contusion of right upper arm, initial encounter; X58.XXXA Exposure to other specified factors, initial encounter; Y93.9 Activity, unspecified; Y92.009 Unspecified place in unspecified non-institutional (private) residence as the place of occurrence of the external cause; S80.12XA Contusion of left lower leg, initial encounter; S80.11XA Contusion of right lower leg, initial encounter; F19.10 Other psychoactive substance abuse, uncomplicated; Z86.19 Personal history of other infectious and parasitic diseases
CPT/HCPCS: 36415; 80048-TC; 80053-TC; 80061-TC; 80076-TC; 80305; 85025-TC; G0480